=== PATIENT | male | born 1960 | race African-American/Black ===

== ENCOUNTER 2016-09-14 06:14 | Emergency (ER) | payer OTHER ==
[2016-09-14 06:54] VITALS: BMI 47.9
[2016-09-14] MEDS ORDERED: predniSONE 20 MG TABLET (UD) PO ONE (07:26)
[2016-09-14] MEDS ORDERED: ALBUTEROL SO4 2.5/IPRATROPIUM 0.5 INH SOL 3 ML VIAL.NEB. NEB ONE ×3 (07:26→07:45)
[2016-09-14] MEDS ORDERED: predniSONE 20 MG TABLET (UD) ONE (07:33)
--- NOTE | 2016-09-14 07:34 | PDOC ---
History of Present Illness - General Chief Complaint: Respiratory Stated Complaint: WHEEZING Time Seen by Provider: 09/14/16 07:17 History Source: Patient Exam Limitations: No Limitations - History of Present Illness Initial Comments: 09/14/16 07:35 56 y/o male presents with cough x 5 days now wheezing 3 days worsened with exertion and coughing. Patient denies history of asthma, COPD, CHF, recent travel, recent illness, or smoking history. Patient states went to his PCP on Friday Dr. Natalia Elam who states it was likely viral and discharge patient home but states his symptoms worsen and decided to come to the ER. Patient denies fever, chills, headache, throat pain, chest pain, or palpitations. patient does have history hypertension and diabetes with his last fingerstick 2 days ago being around 250. Timing/Duration: reports: getting worse Severity: reports: mild, moderate Possible Cause: Yes: no prior episodes Modifying Factors: improves with: coughing Associated Symptoms: reports: cough, wheezing. denies: shortness of breath Past History - Past Medical History Allergies/Adverse Reactions: Allergies Allergy/AdvReac Type Severity Reaction Status Date / Time No Known Allergies Allergy Verified 09/14/16 06:45 Home Medications: Ambulatory Orders Losartan/Hydrochlorothiazide [Hyzaar 100-25 Tablet] 1 each PO DAILY #0 tablet Metoprolol Tartrate [Lopressor -] 50 mg PO DAILY 03/30/15 Insulin Lispro [Humalog] 35 unit SQ BID 02/26/16 Tamsulosin HCl [Flomax] 0.4 mg PO DAILY #7 capsule 02/26/16 Anemia: No Asthma: No Cancer: No Cardiac Disorders: No CVA: No COPD: No CHF: No Dementia: No Diabetes: Yes (IDDM) GI Disorders: No Disorders: No HTN: Yes Hypercholesterolemia: Yes Liver Disease: No Seizures: No Thyroid Disease: No - Surgical History Abdominal Surgery: Yes (HERNIA REPAIR CHILD) Appendectomy: No Cardiac Surgery: No Cholecystectomy: No Lung Surgery: No Neurologic Surgery: No Orthopedic Surgery: No - Immunization History Immunization Up to Date: Yes - Psycho/Social/Smoking Cessation Hx Anxiety: No Suicidal Ideation: No Smoking Status: No Smoking History: Never smoked Have you smoked in the past 12 months: No Number of Cigarettes Smoked Daily: 0 Hx Alcohol Use: No Drug/Substance Use Hx: No Substance Use Type: None Hx Substance Use Treatment: No Respiratory Specific PMHX - Complaint Specific PMHX Bronchitis: No Review of Systems - Review of Systems Able to Perform ROS?: Yes Constitutional: No: Symptoms Reported HEENTM: No: Symptoms Reported Respiratory: Yes: Cough, Wheezing Cardiac (ROS): No: Symptoms Reported ABD/GI: No: Symptoms Reported : No: Symptoms Reported Musculoskeletal: No: Symptoms Reported Integumentary: No: Symptoms Reported Neurological: No: Symptoms reported *Physical Exam - Vital Signs Last Vital Signs Temp Pulse Resp BP Pulse Ox 89 19 136/76 94 L 09/14/16 06:51 09/14/16 06:51 09/14/16 06:51 09/14/16 06:51 - Physical Exam General Appearance: Yes: Nourished, Appropriately Dressed. No: Apparent Distress HEENT: positive: EOMI, FREDDY. negative: Pale Conjunctivae Neck: positive: Supple Respiratory/Chest: positive: Wheezing (expiratory to right lobe). negative: Respiratory Distress, Accessory Muscle Use, Labored Respiration, Rapid RR, Decreased Breath Sounds Cardiovascular: positive: Regular Rhythm, Regular Rate. negative: Murmur Gastrointestinal/Abdominal: positive: Soft. negative: Tenderness Extremity: positive: Normal Capillary Refill. negative: Pedal Edema Integumentary: positive: Normal Color, Warm, Moist Neurologic: positive: Motor Strength 5/5 (ambulatory) ED Treatment Course - RADIOLOGY Radiology Studies Ordered: Category Date Time Status CHEST PA & LAT [RAD] Stat Radiology 09/14/16 07:26 Ordered Medical Decision Making - Medical Decision Making 09/14/16 07:50 Patient with cough for the past 5 days now associated with wheezing. Patient denies fever, chills, chest pain, shortness of breath . patient on exam had expiratory wheeze to the right lower lobe without rhonchi crackles, or rales. Patient concerning for acute wheezy bronchitis. Patient ordered for 2 DuoNeb, prednisone, and chest x-ray. Patient's repeat O2 sat on my exam was 97 with a heart rate of 82. Temperature missing and will obtain shortly. 09/14/16 08:50 Patient states feeling much better. Patient has no wheezing or accessory muscle use on exam. Patient's O2 sat 97-98% on room air. Patient's chest x-ray negative for acute findings. Patient be discharged home with prednisone 3 days , and albuterol inhaler and a Z-Ketan for acute wheezy bronchitis *DC/Admit/Observation/Transfer Diagnosis at time of Disposition: Acute wheezy bronchitis - Discharge Dispostion Disposition: HOME Condition at time of disposition: Improved - Referrals Referrals: Natalia Elam MD [Primary Care Provider] - - Patient Instructions Printed Discharge Instructions: DI for Acute Bronchitis Additional Instructions: Take azithromycin as prescribed for the next 3 days. Please start prednisone tomorrow for the next 3 days. Use your inhaler as needed for wheezing or coughing.
[2016-09-14 07:57] VITALS: TEMP 97.5
[2016-09-14 09:03] VITALS: BP 138/72; PULSE 88
== END 2016-09-14 09:03 | disposition home or self-care (01) ==
LOC: JER 06:14
PROC: 3E0F7GC Introduction of Other Therapeutic Substance into Respiratory Tract, Via Natural or Artificial Opening (ICD-10-PCS; principal; 2016-09-14)
PROC: 3E0F7GC Introduction of Other Therapeutic Substance into Respiratory Tract, Via Natural or Artificial Opening (ICD-10-PCS; 2016-09-14)
DX: J20.9 Acute bronchitis, unspecified (principal); I10 Essential (primary) hypertension; E11.9 Type 2 diabetes mellitus without complications; Z79.4 Long term (current) use of insulin; E78.00 Pure hypercholesterolemia, unspecified
CPT/HCPCS: 71020-TC; 99283-25

== ENCOUNTER 2016-11-23 22:14 | Emergency (ER) | payer OTHER ==
--- NOTE | 2016-11-23 22:17 | PDOC ---
[id number] 4d DIARRHEA Time Seen by Provider: 11/23/16 22:16 - History of Present Illness Initial Comments: 11/23/16 22:54 This 56-year-old man with a history of hypertension/diabetes mellitus type 2/ prostate carcinoma (in remission) presents with a 3 day history of diarrhea. Patient reports 4-5 bowel movements a day: Watery, brown stools without mucus or blood. Patient has not had any nausea or vomiting; he denies fevers/chills. He has no significant abdominal pain. No other family member with similar illness. No recent travel and no unusual food ingestion. Patient states that he is been attempting to keep up on his fluid hydration however feels that his mouth is dry. Patient took 2 doses of Imodium(first dose 4 mg , second dose 2 mg) today without change in stool consistency (no doses prior to today) Patient has been taking his other medications as prescribed Past History - Past Medical History Allergies/Adverse Reactions: Allergies Allergy/AdvReac Type Severity Reaction Status Date / Time No Known Allergies Allergy Verified 09/14/16 06:45 Home Medications: Ambulatory Orders Losartan/Hydrochlorothiazide [Hyzaar 100-25 Tablet] 1 each PO DAILY #0 tablet Metoprolol Tartrate [Lopressor -] 50 mg PO DAILY 03/30/15 Insulin Lispro [Humalog] 35 unit SQ BID 02/26/16 Tamsulosin HCl [Flomax] 0.4 mg PO DAILY #7 capsule 02/26/16 Anemia: No Asthma: No Cancer: No Cardiac Disorders: No CVA: No COPD: No CHF: No Dementia: No Diabetes: Yes (IDDM) GI Disorders: No Disorders: No HTN: Yes Hypercholesterolemia: Yes Liver Disease: No Seizures: No Thyroid Disease: No - Surgical History Abdominal Surgery: Yes (HERNIA REPAIR CHILD) Appendectomy: No Cardiac Surgery: No Cholecystectomy: No Lung Surgery: No Neurologic Surgery: No Orthopedic Surgery: No - Immunization History Immunization Up to Date: Yes - Psycho/Social/Smoking Cessation Hx Anxiety: No Suicidal Ideation: No Smoking Status: No Smoking History: Never smoked Have you smoked in the past 12 months: No Number of Cigarettes Smoked Daily: 0 Hx Alcohol Use: No Drug/Substance Use Hx: No Substance Use Type: None Hx Substance Use Treatment: No Review of Systems - Review of Systems Able to Perform ROS?: Yes Comments:: 12 point review of systems is negative except for what is noted in the history of present illness *Physical Exam - Physical Exam Comments: GENERAL: Adult male, alert and oriented 3, in no acute distress HEAD: Normal with no signs of trauma. EYES: PERRLA, EOMI, sclera anicteric, conjunctiva clear. ENT: Ears normal, nares patent, oropharynx clear without exudates. Dry mucous membranes. NECK: Normal range of motion, supple without lymphadenopathy, JVD, or masses. LUNGS: Breath sounds equal, clear to auscultation bilaterally. No wheezes, and no crackles. HEART:Regular rate and rhythm, normal S1 and S2 without murmur, rub or gallop. ABDOMEN:.normal bowel sounds No guarding,tenderness or rebound.No masses No distention. EXTREMITIES: Normal range of motion, no edema. No clubbing or cyanosis. No erythema, or tenderness. NEUROLOGICAL: Cranial nerves II through XII grossly intact. Normal speech. No focal neurological deficits. MUSCULOSKELETAL: Back non-tender to palpation, no CVA tenderness SKIN: Warm, Dry, normal turgor, no rashes or lesions noted. ED Treatment Course - LABORATORY CBC & Chemistry Diagram: 11/23/16 22:46 11/23/16 22:46 Progress Note - Progress Note Progress Note: Because this 56-year-old man with a history of nonbloody diarrhea for 3 days feels thirsty and has dry mucous membranes, liter of normal saline will be given. CBC/chemistry profile will be sent to evaluate for electrolyte abnormalities. Lack of fever/abdominal tenderness/mucus or blood in stool makes invasive infection much less likely. Medical Decision Making - Medical Decision Making Laboratory evaluation shows white blood cell count of 3400; sodium level is slightly decreased at 134; potassium is normal at 4.2. BUN is 28 with creatinine of 1.7 (comparable to previous values in the record) glucose is 222 Patient is given a liter normal saline IV. Patient had one loose stool tearing evaluation; given 2 mg of Imodium by mouth. Diarrhea is likely related to viral based gastroenteritis; since there is no clear evidence of invasive enterocolitis, empiric antibiotics will not be given. Patient should drink plenty of fluids and use Imodium/Pepto-Bismol/ Kaopectate as needed. He should plan to see his PMD, Dr. Natalia Lutz on November 25. If he develops pain/vomiting/fever he should return to the emergency room. 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 and probably could not see red color if blood was in stool) *DC/Admit/Observation/Transfer Diagnosis at time of Disposition: Diarrhea Qualifiers: Diarrhea type: presumed infectious Qualified Code(s): A09 - Infectious gastroenteritis and colitis, unspecified - Discharge Dispostion Disposition: HOME Condition at time of disposition: Stable - Referrals Referrals: Natalia Elam MD [Primary Care Provider] - 2 Days - Patient Instructions Printed Discharge Instructions: Diarrhea, Gastroenteritis Diet Additional Instructions: drink plenty of fluids imodium/pepto-bismol/kaopectate as needed return to ER if you develop weakness/fever/pain/bloody or dark stools followup with Dr Tyson on November 25
[2016-11-23 22:18] VITALS: BP 131/76; PULSE 79; TEMP 97.5; BMI 47.0
[2016-11-23] MEDS ORDERED: SODIUM CHLORIDE 1,000 ML IV STA (22:37)
[2016-11-23 23:02] LABS: BASOPHIL 1.3 % (0-2.0); EOSINOPHIL 1.5 % (0-4.5); MCH 26.1 pg (25.7-33.7); MCHC 32.5 g/dl (32.0-35.9); MEAN CELL VOLUME 80.2 fl (80-96); MEAN PLT VOLUME 10.9 fl (7.5-11.1); NEUTROPHILS 67.3 % (42.8-82.8); PLATELET COUNT 141 K/MM3 (134-434); RDW 15.1 % (11.9-15.9); WHITE BLOOD COUNT 3.4 K/mm3 (4.0-10.0)
[2016-11-23 23:13] LABS: ALBUMIN 3.7 g/dl (3.5-5.0); BILIRUBIN,TOTAL 0.4 mg/dl (0.2-1.0); CALCIUM 8.2 mg/dl (8.4-10.2); CREATININE 1.7 mg/dl (0.6-1.3); TOT PROT 6.8 g/dl (6.4-8.3)
[2016-11-23] MEDS ORDERED: LOPERAMIDE HCL 2 MG CAPSULE ONE (23:39)
[2016-11-23] MEDS ORDERED: LOPERAMIDE HCL 2 MG CAPSULE PO ONE (23:44)
== END 2016-11-23 23:48 | disposition home or self-care (01) ==
LOC: FER 22:14
PROC: 3E0337Z Introduction of Electrolytic and Water Balance Substance into Peripheral Vein, Percutaneous Approach (ICD-10-PCS; principal; 2016-11-23)
DX: A09 Infectious gastroenteritis and colitis, unspecified (principal); E11.9 Type 2 diabetes mellitus without complications; I10 Essential (primary) hypertension
CPT/HCPCS: 36415; 80053; 85025; 99283-25

== ENCOUNTER 2018-09-03 09:18 | Emergency (ER) | payer OTHER ==
--- NOTE | 2018-09-03 09:20 | PDOC ---
History of Present Illness - General Chief Complaint: Ear Problem Stated Complaint: RIGHT EAR WAX Time Seen by Provider: 09/03/18 09:19 History Source: Patient Exam Limitations: No Limitations - History of Present Illness Initial Comments: Pt is a 57 yo M, with PMH of HTN, DM, and prostate CA (in remission), who is presenting with complaints of pressure and "feeling like there is earwax" in his R ear x2 days. Pt states he used OTC Debrox drops, which did not relieve the pressure. He also says he feels like his hearing may be decreased in that ear, but denies any tinnitus, vision changes, or problems with balance. He denies any recent travel, allergies, ear surgeries, or prolonged head submersion /diving/swimming. Pt denies any fevers/chills, headache, vision changes, chest pain, palpitations, SOB, nausea/vomiting, abdominal pain, urinary symptoms, diarrhea/constipation, or leg swelling. 09/03/18 09:59 Past History - Travel Traveled outside of the country in the last 30 days: No Close contact w/someone who was outside of country & ill: No - Past Medical History Allergies/Adverse Reactions: Allergies Allergy/AdvReac Type Severity Reaction Status Date / Time No Known Allergies Allergy Verified 09/03/18 09:27 Home Medications: Ambulatory Orders Losartan/Hydrochlorothiazide [Hyzaar 100-25 Tablet] 1 each PO DAILY #0 tablet Metoprolol Tartrate [Lopressor -] 50 mg PO DAILY 03/30/15 Insulin Lispro [Humalog] 0 unit SQ BID 02/26/16 Anemia: No Asthma: No Cancer: No Cardiac Disorders: No CVA: No COPD: No CHF: No Dementia: No Diabetes: Yes (IDDM) GI Disorders: No Disorders: No HTN: Yes Hypercholesterolemia: Yes Liver Disease: No Seizures: No Thyroid Disease: No - Surgical History Abdominal Surgery: Yes (HERNIA REPAIR CHILD) Appendectomy: No Cardiac Surgery: No Cholecystectomy: No Lung Surgery: No Neurologic Surgery: No Orthopedic Surgery: No - Immunization History Immunization Up to Date: Yes - Suicide/Smoking/Psychosocial Hx Smoking Status: No Smoking History: Never smoked Have you smoked in the past 12 months: No Number of Cigarettes Smoked Daily: 0 Hx Alcohol Use: No Drug/Substance Use Hx: No Substance Use Type: None Hx Substance Use Treatment: No Review of Systems - Review of Systems Able to Perform ROS?: Yes Is the patient limited Bengali proficient: No Constitutional: Yes: Weight Stable. No: Chills, Diaphoresis, Fever, Loss of Appetite, Malaise, Weakness HEENTM: Yes: See HPI, Other (ear "pressure" sensation in the R ear x2 days). No : Recent change in vision, Ear Pain, Ear Discharge, Nose Congestion, Tinnitus, Nose Bleeding, Throat Pain, Throat Swelling Respiratory: No: Cough, Orthopnea, Shortness of Breath Cardiac (ROS): No: Chest Pain, Lightheadedness, Palpitations, Syncope ABD/GI: No: Diarrhea, Poor Appetite, Poor Fluid Intake, Vomiting : No: Burning, Dysuria, Pain Musculoskeletal: No: Back Pain, Joint Pain Integumentary: No: Rash Neurological: No: Headache, Numbness, Unsteady Gait, Ataxia, Dizziness Psychiatric: No: Sleep Pattern Change, Change in Appetite Endocrine: No: Increased Urine, Change in Weight Hematologic/Lymphatic: No: Anemia, Blood Clots, Easy Bleeding, Easy Bruising All Other Systems: Reviewed and Negative *Physical Exam - Physical Exam General Appearance: Yes: Nourished, Appropriately Dressed, Obese. No: Apparent Distress HEENT: positive: EOMI, FREDDY, Normal Voice, Symmetrical, TMs Normal, Pharynx Normal, Hearing Grossly Normal, Other (Fluid behind R TM, L TM impacted with cerumen). negative: Normal ENT Inspection, Photophobia, Scleral Icterus (R), Scleral Icterus (L), Muffled/Hoarse voice, Pharyngeal Erythema, Tonsillar Exudate, Tonsillar Erythema, Nasal Congestion, Rhinorrhea, Sinus Tenderness, Hearing Decreased, TM Bulging, TM Dull, TM Erythema Neck: positive: Trachea midline, Supple. negative: Tender, Rigid, Lymphadenopathy (R), Lymphadenopathy (L) Respiratory/Chest: positive: Lungs Clear, Normal Breath Sounds, Decreased Breath Sounds (mildly diminished due to body habitus, but clear). negative: Chest Tender, Respiratory Distress, Accessory Muscle Use, Crackles, Wheezing Cardiovascular: positive: Regular Rhythm, Regular Rate, S1, S2. negative: Edema , JVD, Murmur Vascular Pulses: Carotid (R): 4+, Carotid (L): 4+ Gastrointestinal/Abdominal: positive: Normal Bowel Sounds, Soft, Protuberent. negative: Tender, Flat, Organomegaly, Pulsatile Mass, Distended, Guarding, Rebound Rectal Exam: positive: deferred Lymphatic: negative: Adenopathy, Tenderness Musculoskeletal: positive: Normal Inspection. negative: CVA Tenderness Extremity: positive: Normal Capillary Refill, Normal Inspection, Normal Range of Motion, Pelvis Stable. negative: Tender Integumentary: positive: Normal Color, Dry, Warm. negative: Clammy, Diaphoresis , Rash Neurologic: positive: physician internist II-XII NML intact, Fully Oriented, Alert, Normal Mood/ Affect, Normal Response, Motor Strength 5/5. negative: Abnormal Cranial NS, EOM Palsy Medical Decision Making - Medical Decision Making Pt was seen at bedside, also will be seen by attending Dr. Griggs. Pt presenting with complaints of pressure and "feeling like there is earwax" in his R ear x2 days. Pt states he used OTC Debrox drops, which did not relieve the pressure. He also says he feels like his hearing may be decreased in that ear, but denies any tinnitus, vision changes, or problems with balance. He denies any recent travel, allergies, ear surgeries, or prolonged head submersion /diving/swimming. Pt denies any fevers/chills, headache, vision changes, chest pain, palpitations, SOB, nausea/vomiting, abdominal pain, urinary symptoms, diarrhea/constipation, or leg swelling. PE showed cerumen impaction of the LEFT ear, no cerumen impaction of the RIGHT ear. Fluid behind R TM, no significant erythema or signs of exudate. No LAD or tenderness with ear pulling. No sinus tenderness to palpation. Heart and lung sounds clear, slightly diminished due to body habitus. Exam otherwise benign. Likely congestion with fluid behind TM. Minimal concern for otitis media, as ear is not painful and no erythema/purulent fluid behind TM. TM intact with no rupture. Considering benign exam pt can be discharged to home with follow-up. Pt advised to use decongestants (OTC claritin/flonase, and to avoid medications that would raise his BP, like ephedrine). Pt advised to follow-up with PCP in 1-2 days and has been referred to ENT (Dr. Terrazas). Strict return precautions provided with pt understanding. 09/03/18 09:38 *DC/Admit/Observation/Transfer Diagnosis at time of Disposition: Congestion of right ear - Discharge Dispostion Disposition: HOME Condition at time of disposition: Good Decision to Admit order: No - Referrals Referrals: Carol Alejo MD [Primary Care Provider] - Adryan Terrazas MD [Staff Physician] - - Patient Instructions Printed Discharge Instructions: DI for Cerumen Impaction Additional Instructions: You were seen in the ER today for pressure in your ear. Your exam showed only fluid behind your right ear, and earwax in your left ear. Please follow-up with your primary care doctor and ENT (Dr. Terrazas) within 1-2 days to discuss your visit and make sure your symptoms have improved. Please return to the ER if you have any worsening pain, loss of hearing, ringing in your ears, dizziness or feeling off balance, development of fevers or chills, loss of consciousness, inability to tolerate food or fluids, or any other concerns. You can use a decongestant like Flonase and Claritin to help with the congestion. - Post Discharge Activity
[2018-09-03 09:30] VITALS: BP 153/104; PULSE 75; TEMP 97.6; BMI 46.1
--- NOTE | 2018-09-03 10:06 | PDOC ---
Attending Attestation - Resident Resident Name: AnthonyHelena - ED Attending Attestation I have performed the following: I have examined & evaluated the patient, The case was reviewed & discussed with the resident, I agree w/resident's findings & plan, Exceptions are as noted - HPI HPI: 09/03/18 10:02 57 yo male with h/o HTN DM prostate CA in remission here with c/o right ear fullness. thinks he may have wax impaction. has been using wax drops, did recently have a cold with nasal congestion. feels his hearing may be slightly reduced on that side. no vertigo or dizziness. no weakness. no tinnitus. no f/c no cp no sob. no other comlaints. no know h/o tm fluid leaking or injury. does use q tips. - Physicial Exam PE: 09/03/18 10:03 awake alert lungs clear bilaterally heart rrr no mrg right tm with serous fluid behind TM. mild hypervasculature, noted posterior aspect TM. left tm partially occluded by wax. throat with post pharynx cobblestoning. nare with right turbinate enlargement. nuero speech clear gait normal. alert oriented x 3. - Medical Decision Making 09/03/18 10:05 pt with no wax occlusion, noted hypervascularity on right TM possible old injury to TM. recommend ENT followup, decongestant such as flonase, given number for dr. dawn. and told to continue wax drops in left ear.
== END 2018-09-03 09:49 | disposition home or self-care (01) ==
LOC: FER 09:18
DX: H93.8X1 Other specified disorders of right ear (principal); I10 Essential (primary) hypertension; E78.00 Pure hypercholesterolemia, unspecified; E11.9 Type 2 diabetes mellitus without complications; Z85.46 Personal history of malignant neoplasm of prostate; Z79.4 Long term (current) use of insulin
CPT/HCPCS: 99281-25

== ENCOUNTER 2018-11-04 16:18 | Inpatient (IN) | payer OTHER ==
--- NOTE | 2018-11-04 16:42 | PDOC ---
History of Present Illness - General Chief Complaint: Respiratory Stated Complaint: WEAKNESS Time Seen by Provider: 11/04/18 16:42 History Source: Patient Exam Limitations: No Limitations - History of Present Illness Initial Comments: 11/04/18 17:18 58 year old male with PMH IDDM, HTN presented to ED for productive cough x4 days associated with pleuritic chest pain, body aches. Pt stated he saw his PCP Dr. Carol Alejo x2 days ago for same complaints, but his symptoms persist. Pt stated he was not given antibiotics. Pt stated his productive cough is yellow. Pt denied hemoptysis. Allergies: NKDA Admitted to having flu shot Past History - Past Medical History Allergies/Adverse Reactions: Allergies Allergy/AdvReac Type Severity Reaction Status Date / Time No Known Allergies Allergy Verified 11/04/18 16:42 Home Medications: Ambulatory Orders Metoprolol Tartrate [Lopressor -] 50 mg PO DAILY 03/30/15 Insulin Lispro [Humalog] 0 unit SQ BID 02/26/16 Insulin Detemir [Levemir Flextouch] 30 unit SQ BID 11/04/18 Losartan/Hydrochlorothiazide [Hyzaar 100-25 Tablet] 1 each PO ASDIR 11/04/18 Anemia: No Asthma: No Cancer: No Cardiac Disorders: No CVA: No COPD: No CHF: No Dementia: No Diabetes: Yes (IDDM) GI Disorders: No Disorders: No HTN: Yes Hypercholesterolemia: Yes Kidney Stones: Yes Liver Disease: No Seizures: No Thyroid Disease: No - Surgical History Abdominal Surgery: Yes (HERNIA REPAIR CHILD) Appendectomy: No Cardiac Surgery: No Cholecystectomy: No Lung Surgery: No Neurologic Surgery: No Orthopedic Surgery: No - Immunization History Immunization Up to Date: Yes - Suicide/Smoking/Psychosocial Hx Smoking Status: No Smoking History: Never smoked Have you smoked in the past 12 months: No Number of Cigarettes Smoked Daily: 0 Hx Alcohol Use: No Drug/Substance Use Hx: No Substance Use Type: None Hx Substance Use Treatment: No Review of Systems - Review of Systems Able to Perform ROS?: Yes Comments:: 11/04/18 17:19 General: admitted to fever, chills, generalized weakness. HEENT: denied sore throat, rhinorrhea, ear pain. Heart: admitted to chest pain. denied palpitations, syncope, diaphoresis. Respiratory: admitted to cough, sputum production. denied shortness of breath, hemoptysis. Abdomen: admitted to nausea, vomiting. denied abdominal pain, diarrhea, constipation, blood in stool. : denied dysuria, increased urinary frequency, hematuria, urinary incontinence , flank pain. Back: denied back pain. Musculoskeletal: denied joint pain, joint swelling. Neurological: denied headache, dizziness, numbness, tingling, weakness. Skin: denied rash, laceration, abrasion. *Physical Exam - Physical Exam Comments: 11/04/18 18:11 Constitutional: Well-nourished, Well-developed, appearing stated age. morbidly obese. HEENT: head is normocephalic, atraumatic. EOMI. PERRLA. dry oral mucosa. Neck: supple. Full ROM. Heart: regular rhythm. no murmurs, rubs or gallops. Lungs: poor inspiratory effort. clear to auscultation bilaterally. Abdomen: soft, nontender. normal bowel sounds. no rebound, guarding, masses. Extremities: Peripheral pulses intact. No lower extremity edema. Neurological: CN 2-12 grossly intact. Moves all four extremities. Psych: awake, alert, oriented x3. Follows commands. Answers questions appropriately ED Treatment Course - LABORATORY CBC & Chemistry Diagram: 11/05/18 08:30 11/04/18 17:00 Medical Decision Making - Medical Decision Making 11/04/18 17:21 58 year old male with above PMH presented to ED for productive cough, body aches , pleuritic chest pain. Pt had nausea, vomiting x2 days ago that has resolved. Initial Vital Signs Temp Pulse Resp BP Pulse Ox 100.4 F H 121 H 26 H 141/85 97 11/04/18 16:42 11/04/18 16:42 11/04/18 16:42 11/04/18 16:42 11/04/18 16:42 Febrile. - Rectal temp 102.9F Tachycardic. Tachypneic. Mild hypertension. No hypoxia on room air. Labs ordered: CBC, CMP, VBG, troponin, BNP, lactate, blood cultures, influenza A /B testing Imaging ordered: CXR Medications ordered: normal saline bolus 1000 cc, tylenol, duoneb EKG performed at 1656: rate 118, regular rhythm, left axis, nonspecific ST changes. 11/04/18 17:31 CBC WBC 11.3 K/mm3 (4.0-10.0) H 11/04/18 17:00 RBC 5.67 M/mm3 (4.00-5.60) H 11/04/18 17:00 Hgb 16.3 GM/dL (11.7-16.9) 11/04/18 17:00 Hct 49.2 % (35.4-49) H D 11/04/18 17:00 MCV 86.8 fl (80-96) 11/04/18 17:00 MCH 28.7 pg (25.7-33.7) D 11/04/18 17:00 MCHC 33.1 g/dl (32.0-35.9) 11/04/18 17:00 RDW 14.5 % (11.9-15.9) 11/04/18 17:00 Plt Count 194 K/MM3 (134-434) D 11/04/18 17:00 MPV 10.0 fl (7.5-11.1) 11/04/18 17:00 Absolute Neuts (auto) 9.8 K/mm3 (1.5-8.0) H 11/04/18 17:00 Neutrophils % 86.6 % (42.8-82.8) H 11/04/18 17:00 Lymphocytes % 5.6 % (8-40) L D 11/04/18 17:00 Monocytes % 7.0 % (3.8-10.2) 11/04/18 17:00 Eosinophils % 0.6 % (0-4.5) 11/04/18 17:00 Basophils % 0.2 % (0-2.0) 11/04/18 17:00 Nucleated RBC % 0 % (0-0) 11/04/18 17:00 Leukocytosis with left shift. No anemia. 11/04/18 17:52 CMP Sodium 135 mmol/L (136-145) L 11/04/18 17:00 Potassium 4.2 mmol/L (3.5-5.1) 11/04/18 17:00 Chloride 100 mmol/L (98-107) 11/04/18 17:00 Carbon Dioxide 29 mmol/L (21-32) 11/04/18 17:00 Anion Gap 7 MMOL/L (8-16) L 11/04/18 17:00 BUN 21 mg/dL (7-18) H 11/04/18 17:00 Creatinine 1.6 mg/dL (0.55-1.3) H 11/04/18 17:00 Creat Clearance w eGFR 44.62 (>60) 11/04/18 17:00 Random Glucose 176 mg/dL (74-106) H 11/04/18 17:00 Calcium 9.1 mg/dL (8.5-10.1) 11/04/18 17:00 Total Bilirubin 0.5 mg/dL (0.2-1) 11/04/18 17:00 AST 22 U/L (15-37) 11/04/18 17:00 ALT 46 U/L (13-61) 11/04/18 17:00 Alkaline Phosphatase 94 U/L (45-117) 11/04/18 17:00 Troponin I < 0.02 ng/ml (0.00-0.05) 11/04/18 17:00 B-Natriuretic Peptide 179.8 pg/ml (5-125) H 11/04/18 17:00 Total Protein 6.5 g/dl (6.4-8.2) 11/04/18 17:00 Albumin 3.2 g/dl (3.4-5.0) L 11/04/18 17:00 No electrolyte abnomalitiles. Cr at baseline. No transaminitis. Mild elevation of BNP, not clinically significant. Normal troponin. Influenza testing A/B negative. 11/04/18 18:11 Lactate 2.9 Medications ordered: normal saline bolus 1000 cc 11/04/18 18:31 Vital Signs Temperature 102.9 F H 11/04/18 17:14 Pulse Rate 98 H 11/04/18 18:13 Respiratory Rate 28 H 11/04/18 18:13 Blood Pressure 108/65 11/04/18 18:13 O2 Sat by Pulse Oximetry (%) 95 11/04/18 18:13 Tachycardia improving with fluid hydration. Still tachypneic. Mild hypotension. No hypoxia on room air. 11/04/18 18:41 CXR my interpretation: hazy left base, possible pneumonia. Medications ordered: ceftriaxone + azithromycin Acetone negative. Pt to be admitted for sepsis, suspected pneumonia, lactic acidosis. Microblog sent to hospitalists. 11/04/18 19:51 Vital Signs Temperature 102.9 F H 02/27/19 17:14 Pulse Rate 90 11/04/18 19:31 Respiratory Rate 26 H 11/04/18 19:31 Blood Pressure 125/58 L 11/04/18 19:31 O2 Sat by Pulse Oximetry (%) 93 L 11/04/18 19:31 Blood pressure improving with IV fluids. I spoke with Dr. Moore about the case, he recs admission for community acquired pneumonia. Urine Test Results Urine Color Yellow 11/04/18 19:16 Urine Appearance Clear 11/04/18 19:16 Urine pH 5.0 (5.0-8.0) 11/04/18 19:16 Ur Specific [place] 1.025 (1.010-1.035) 11/04/18 19:16 Urine Protein 2+ (NEGATIVE) H 11/04/18 19:16 Urine Glucose (UA) Negative (NEGATIVE) 11/04/18 19:16 Urine Ketones Negative (NEGATIVE) 11/04/18 19:16 Urine Blood Negative (NEGATIVE) 11/04/18 19:16 Urine Nitrite Negative (NEGATIVE) 11/04/18 19:16 Urine Bilirubin Negative (<2.0 mg/dL) 11/04/18 19:16 Ur Leukocyte Esterase Negative (NEGATIVE) 11/04/18 19:16 Ur Epithelial Cells Rare /HPF (FEW) 11/04/18 19:16 Urine Mucus Rare 11/04/18 19:16 No evidence of UTI. 11/05/18 10:08 Official CXR report: no active intrapulmonary disease. - CXR of poor quality secondary to morbid obesity, may not show underlying pneumonia - Clinically pt has symptoms concerning for sepsis secondary to pneumonia *DC/Admit/Observation/Transfer Diagnosis at time of Disposition: Lactic acidosis, Sepsis, Productive cough - Discharge Dispostion Condition at time of disposition: Guarded Decision to Admit order: Yes - Referrals - Patient Instructions - Post Discharge Activity
[2018-11-04] MEDS ORDERED: SODIUM CHLORIDE 1,000 ML IV STA ×2 (16:55→18:10)
[2018-11-04] MEDS ORDERED: ACETAMINOPHEN 1000 MG/100 ML VIAL (NON FORMULARY) IVPB ONE (16:55)
--- NOTE | 2018-11-04 17:11 | PDOC ---
Attending Attestation - HPI HPI: 11/04/18 18:14 The patient is a 58 year old male, with a significant past medical history of hypertension, IDDM who presents to the emergency department with 4 days of persistent cough productive of yellow sputum, body aches, pleuritic chest pain. He states he saw Dr. Alejo a couple of days ago who advised him to come to the ED for evaluation. The patient denies shortness of breath, headache and dizziness. The patient denies fever, chills, nausea, vomit, diarrhea and constipation. The patient denies dysuria, frequency, urgency and hematuria. Allergies: NKDA - Physicial Exam PE: 11/04/18 18:14 Constitutional: Well-nourished, Well-developed, appearing stated age. morbidly obese. HEENT: head is normocephalic, atraumatic. EOMI. PERRLA. dry oral mucosa. Neck: supple. Full ROM. Heart: regular rhythm. no murmurs, rubs or gallops. Lungs: poor inspiratory effort. clear to auscultation bilaterally. Abdomen: soft, nontender. normal bowel sounds. no rebound, guarding, masses. Extremities: Peripheral pulses intact. No lower extremity edema. Neurological: CN 2-12 grossly intact. Moves all four extremities. Psych: awake, alert, oriented x3. Follows commands. Answers questions appropriately <Vanessa Pineda - Last Filed: 11/04/18 18:14> - Resident Resident Name: Dina Bowie - ED Attending Attestation I have performed the following: I have examined & evaluated the patient, The case was reviewed & discussed with the resident, I agree w/resident's findings & plan, Exceptions are as noted - Medical Decision Making 11/04/18 18:37 EKG - NSR rate of 118bpm, LAD, no st elevation or depression, (+) LVH, (+) artifact 11/04/18 18:38 Laboratory Tests 11/04/18 11/04/18 11/04/18 17:00 17:00 17:01 WBC 11.3 H Hgb 16.3 Hct 49.2 H D Plt Count 194 D Sodium 135 L Potassium 4.2 Chloride 100 Carbon Dioxide 29 Anion Gap 7 L BUN 21 H Creatinine 1.6 H Random Glucose 176 H Alkaline Phosphatase 94 Troponin I < 0.02 B-Natriuretic Peptide 179.8 H Influenza A (Rapid) Negative Influenza B (Rapid) Negative CXR - no obvious infiltrate Pt with productive cough Will do Azithromycin, Ceftriaxone Continue IVF PRN duonebs Admit to hospitalist <Renetta Chatterjee - Last Filed: 11/04/18 18:39> Attestations - Attestations 11/04/18 18:15 Documentation prepared by Vanesas Pineda, acting as biomedical scientist for Renetta Chatterjee MD <Vanessa Pineda - Last Filed: 11/04/18 18:14>
[2018-11-04] MEDS ORDERED: ACETAMINOPHEN INJECTION 100 ML IVPB ONE (17:20)
[2018-11-04] MEDS ORDERED: ALBUTEROL SO4 2.5/IPRATROPIUM 0.5 INH SOL 3 ML VIAL.NEB. NEB ONE ×2 (17:22→17:25)
[2018-11-04 17:27] LABS: BASO % 0.2 % (0-2.0); EOS % 0.6 % (0-4.5); HEMATOCRIT 49.2 % (35.4-49); HEMOGLOBIN 16.3 GM/dL (11.7-16.9); LYMPH % 5.6 % (8-40); MCH 28.7 pg (25.7-33.7); MCHC 33.1 g/dl (32.0-35.9); MEAN CELL VOLUME 86.8 fl (80-96); NEUT % 86.6 % (42.8-82.8); PLATELET COUNT 194 K/MM3 (134-434); RBC 5.67 M/mm3 (4.00-5.60); RDW 14.5 % (11.9-15.9); WHITE BLOOD COUNT 11.3 K/mm3 (4.0-10.0)
[2018-11-04 17:39] LABS: VENOUS PC02 48.8 mmHg (38-52); VENOUS PH 7.4 (7.32-7.42)
[2018-11-04 17:50] LABS: ALBUMIN 3.2 g/dl (3.4-5.0); ALK PHOS 94 U/L (45-117); ANION GAP 7 MMOL/L (8-16); BILIRUBIN,TOTAL 0.5 mg/dL (0.2-1); BLOOD UREA NITROGEN 21 mg/dL (7-18); CALCIUM 9.1 mg/dL (8.5-10.1); CHLORIDE 100 mmol/L (98-107); CO2 29 mmol/L (21-32); CREATININE 1.6 mg/dL (0.55-1.3); GLUCOSE,RANDOM 176 mg/dL (74-106); N-TERMINAL BNP 179.8 pg/ml (5-125); POTASSIUM 4.2 mmol/L (3.5-5.1); SGOT/AST 22 U/L (15-37); SGPT/ALT 46 U/L (13-61); SODIUM 135 mmol/L (136-145); TOT PROT 6.5 g/dl (6.4-8.2)
[2018-11-04] MEDS ORDERED: AZITHROMYCIN 250 MG TABLET PO ONE (18:40)
[2018-11-04] MEDS ORDERED: CEFTRIAXONE 1,000 MG in DEXTROSE 5%-WATER - 50 ML IVPB ONE (18:40)
[2018-11-04] MEDS ORDERED: CEFTRIAXONE 1 GM/50 ML BAG ONE (19:13)
[2018-11-04] MEDS ORDERED: AZITHROMYCIN 250 MG TABLET ONE (19:13)
[2018-11-04 19:39] LABS: URINE APPEARANCE CLEAR; URINE BILIRUBIN NEGATIVE (<2.0 mg/dL); URINE COLOR YELLOW; URINE GLUCOSE (UA) NEGATIVE (NEGATIVE); URINE KETONE NEGATIVE (NEGATIVE); URINE LEUK ESTERASE NEGATIVE (NEGATIVE); URINE NITRITE NEGATIVE (NEGATIVE); URINE PROTEIN 2+ (NEGATIVE); URINE UROBILINOGEN NEGATIVE mg/dL (0.2-1.0)
[2018-11-04 19:42] LABS: EPI CELLS RARE /HPF (FEW); URINE HYALINE CAST 1 /lpf; URINE MUCUS RARE
--- NOTE | 2018-11-04 20:01 | HP ---
CHIEF COMPLAINT: productive cough PCP: Carol Alejo HISTORY OF PRESENT ILLNESS: 58 year old male diabetic man c/o 4 days of persistent cough productive of yellow sputum, body aches, pleuritic chest pain. He states he saw Dr. Alejo a couple of days ago who advised him to come to the ED for evaluation. Patient denied any sick contacts or recent travel. NO chest pain. ER course was notable for: (1) azithromycin (2) ceftriaxone (3) Recent Travel: denied PAST MEDICAL HISTORY: hypertension, IDDM, dylslipidemia, obesity, ckd PAST SURGICAL HISTORY: none reported Social History: Smoking:no Alcohol:no Drugs: no Family History:no Allergies No Known Allergies Allergy (Verified 11/04/18 16:42) HOME MEDICATIONS: Home Medications Medication Instructions Recorded Metoprolol Tartrate [Lopressor -] 50 mg PO DAILY 03/30/15 Insulin Lispro [Humalog] 0 unit SQ BID 02/26/16 Insulin Detemir [Levemir Flextouch] 30 unit SQ BID 11/04/18 Losartan/Hydrochlorothiazide 1 each PO ASDIR 11/04/18 [Hyzaar 100-25 Tablet] REVIEW OF SYSTEMS CONSTITUTIONAL: Absent: , weight change present- fever, chills, diaphoresis, generalized weakness, malaise, loss of appetite HEENT: Absent: rhinorrhea, nasal congestion, throat pain, throat swelling, difficulty swallowing, mouth swelling, ear pain, eye pain, visual changes CARDIOVASCULAR: Absent: chest pain, syncope, palpitations, irregular heart rate, lightheadedness , peripheral edema RESPIRATORY: Absent: cough, shortness of breath, dyspnea with exertion, orthopnea, wheezing, stridor, hemoptysis present-decreased breath sounds b/l GASTROINTESTINAL: Absent: abdominal pain, abdominal distension, nausea, vomiting, diarrhea, constipation, melena, hematochezia GENITOURINARY: Absent: dysuria, frequency, urgency, hesitancy, hematuria, flank pain, genital pain MUSCULOSKELETAL: Absent: myalgia, arthralgia, joint swelling, back pain, neck pain SKIN: Absent: rash, itching, pallor HEMATOLOGIC/IMMUNOLOGIC: Absent: easy bleeding, easy bruising, lymphadenopathy, frequent infections ENDOCRINE: Absent: unexplained weight gain, unexplained weight loss, heat intolerance, cold intolerance NEUROLOGIC: Absent: headache, focal weakness or paresthesias, dizziness, unsteady gait, seizure, mental status changes, bladder or bowel incontinence PSYCHIATRIC: Absent: anxiety, depression, suicidal or homicidal ideation, hallucinations. PHYSICAL EXAMINATION Vital Signs - 24 hr 11/04/18 11/04/18 11/04/18 16:42 17:14 18:13 Temperature 100.4 F H 102.9 F H Pulse Rate 121 H Pulse Rate [ 98 H Radial] Respiratory 26 H 28 H Rate Blood Pressure 141/85 Blood Pressure 108/65 [Right Arm] O2 Sat by Pulse 97 95 Oximetry (%) 11/04/18 19:31 Temperature Pulse Rate Pulse Rate [ 90 Radial] Respiratory 26 H Rate Blood Pressure Blood Pressure 125/58 L [Right Arm] O2 Sat by Pulse 93 L Oximetry (%) GENERAL: Awake, alert, and fully oriented, in no acute distress, speaks in full sentences HEAD: Normal with no signs of trauma. EYES: Pupils equal, round and reactive to light, extraocular movements intact, sclera anicteric, conjunctiva clear. No lid lag. EARS, NOSE, THROAT: Ears normal, nares patent, oropharynx clear without exudates. Moist mucous membranes. NECK: Normal range of motion, supple without lymphadenopathy, JVD, or masses. LUNGS: decreased breath sounds b/l, no crackles or rales appreciated HEART: Regular rate and rhythm, normal S1 and S2 without murmur, rub or gallop. ABDOMEN: Soft, nontender, obese, not distended, normoactive bowel sounds, no guarding, no rebound, no masses. MUSCULOSKELETAL: Normal range of motion at all joints. No bony deformities or tenderness. No CVA tenderness. UPPER EXTREMITIES: 2+ pulses, warm, well-perfused. No cyanosis. No clubbing. No peripheral edema. LOWER EXTREMITIES: 2+ pulses, warm, well-perfused. No calf tenderness. No peripheral edema. NEUROLOGICAL: Cranial nerves II-XII intact. Normal speech. Normal gait. PSYCHIATRIC: Cooperative. Good eye contact. Appropriate mood and affect. SKIN: Warm, dry, normal turgor, no rashes or lesions noted, normal capillary refill. Laboratory Results - last 24 hr 11/04/18 11/04/18 11/04/18 17:00 17:00 17:00 WBC 11.3 H RBC 5.67 H Hgb 16.3 Hct 49.2 H D MCV 86.8 MCH 28.7 D MCHC 33.1 RDW 14.5 Plt Count 194 D MPV 10.0 Absolute Neuts (auto) 9.8 H Neutrophils % 86.6 H Lymphocytes % 5.6 L D Monocytes % 7.0 Eosinophils % 0.6 Basophils % 0.2 Nucleated RBC % 0 Sodium 135 L Potassium 4.2 Chloride 100 Carbon Dioxide 29 Anion Gap 7 L BUN 21 H Creatinine 1.6 H Creat Clearance w eGFR 44.62 Random Glucose 176 H Lactic Acid 2.9 H* Calcium 9.1 Total Bilirubin 0.5 AST 22 ALT 46 Alkaline Phosphatase 94 Troponin I < 0.02 B-Natriuretic Peptide 179.8 H Total Protein 6.5 Albumin 3.2 L Urine Color Urine Appearance Urine pH Ur Specific [place] Urine Protein Urine Glucose (UA) Urine Ketones Urine Blood Urine Nitrite Urine Bilirubin Urine Urobilinogen Ur Leukocyte Esterase Urine WBC (Auto) Urine RBC (Auto) Ur Epithelial Cells Hyaline Casts Urine Mucus Acetone, Qual Influenza A (Rapid) Influenza B (Rapid) 11/04/18 11/04/18 11/04/18 17:00 17:01 19:16 WBC RBC Hgb Hct MCV MCH MCHC RDW Plt Count MPV Absolute Neuts (auto) Neutrophils % Lymphocytes % Monocytes % Eosinophils % Basophils % Nucleated RBC % Sodium Potassium Chloride Carbon Dioxide Anion Gap BUN Creatinine Creat Clearance w eGFR Random Glucose Lactic Acid Calcium Total Bilirubin AST ALT Alkaline Phosphatase Troponin I B-Natriuretic Peptide Total Protein Albumin Urine Color Yellow Urine Appearance Clear Urine pH 5.0 Ur Specific [place] 1.025 Urine Protein 2+ H Urine Glucose (UA) Negative Urine Ketones Negative Urine Blood Negative Urine Nitrite Negative Urine Bilirubin Negative Urine Urobilinogen Negative Ur Leukocyte Esterase Negative Urine WBC (Auto) 1 Urine RBC (Auto) <1 Ur Epithelial Cells Rare Hyaline Casts 1 Urine Mucus Rare Acetone, Qual Negative Influenza A (Rapid) Negative Influenza B (Rapid) Negative Imaging studies reviewed ASSESSMENT/PLAN: #Sepsis secondary to community acquired pneumonia, leukocytosis , lactic acidosis in an obese man with uncontrolled DM. No obvious consolidations seen on cxr but may be missed due to poor quality film and extreme obesity. Flu swab was negative. -admit to med/surg -gentle IV fluid hydration -repeat lactate to ensure its improvement -ceftriaxone 1g IV q24hrs -azithromycin 500mg IV daily -cough syrup prn -supplemental oxygen via nasal cannula -send sputum culture -send blood cultures x2 -pneumovax if has not received already #CKD- -renal u/s -avoid nephrotoxins -renal consult #IDDM- uncontrolled glucose in hospital -novolog insulin sliding scale -send a1c -tight glucose control in hospital -diabetic diet -statin -ASA -#HTN -c/w home dose hyzaar #DVT ppx- heparin sc Visit type - Emergency Visit Emergency Visit: Yes ED Registration Date: 11/04/18 Care time: The patient presented to the Emergency Department on the above date and was hospitalized for further evaluation of their emergent condition. - New Patient This patient is new to me today: Yes Date on this admission: 11/05/18 - Critical Care Critical Care patient: No
[2018-11-04] MEDS ORDERED: ACETAMINOPHEN 500 MG TABLET (FP) PO PRN (20:20)
[2018-11-04] MEDS ORDERED: SODIUM CHLORIDE 1,000 ML IV SCH (20:30)
[2018-11-04] MEDS ORDERED: HEPARIN NA (PORCINE) 5,000 UNITS/ML 1ML VIAL ONE (22:08)
[2018-11-04] MEDS: HEPARIN NA (PORCINE) 5,000 UNITS/ML 1ML VIAL SQ SCH (22:14)
[2018-11-04] MEDS ORDERED: INSULIN (NOVOLOG) ASPART 100 UNITS/ML 10ML VIAL ONE (22:17)
[2018-11-04] MEDS: INSULIN SLIDING SCALE (NOVOLOG) 1 VIAL SQ SCH (22:23)
[2018-11-05 00:29] LABS: VENOUS PO2 17.8 mmHg (28-48)
[2018-11-05] MEDS: INSULIN SLIDING SCALE (NOVOLOG) 1 VIAL SQ SCH ×4 (06:07→23:33)
[2018-11-05 09:25] LABS: HEMATOCRIT 45.3 % (35.4-49); HEMOGLOBIN 15.1 GM/dL (11.7-16.9); MCH 28.8 pg (25.7-33.7); MCHC 33.4 g/dl (32.0-35.9); MEAN CELL VOLUME 86.4 fl (80-96); MEAN PLT VOLUME 10.1 fl (7.5-11.1); PLATELET COUNT 136 K/MM3 (134-434); RBC 5.25 M/mm3 (4.00-5.60); RDW 14.9 % (11.9-15.9); WHITE BLOOD COUNT 12.1 K/mm3 (4.0-10.0)
[2018-11-05] MEDS ORDERED: cefTRIAXone SODIUM 1 GM VIAL ONE (11:02)
[2018-11-05] MEDS ORDERED: DEXTROSE 5%-WATER - 50 ML IVPB ONE (11:02)
[2018-11-05] MEDS: HEPARIN NA (PORCINE) 5,000 UNITS/ML 1ML VIAL SQ SCH ×2 (11:13→22:45)
[2018-11-05] MEDS: CEFTRIAXONE 1 GM in DEXTROSE 5%-WATER - 50 ML IVPB SCH (11:13)
[2018-11-05] MEDS: AZITHROMYCIN IVPB 500 MG/250 ML BAG IVPB SCH (11:45)
[2018-11-05] MEDS ORDERED: INSULIN (NOVOLOG) ASPART 100 UNITS/ML 10ML VIAL ONE (12:20)
[2018-11-05] MEDS ORDERED: ALBUTEROL SO4 2.5/IPRATROPIUM 0.5 INH SOL 3 ML VIAL.NEB. NEB PRN (13:03)
--- NOTE | 2018-11-05 13:03 | PN ---
Progress Note, Physician Chief Complaint: no distress coughing is less- productive of whitish sputum no chest pain , sob - Current Medication List Current Medications: Active Medications Acetaminophen (Tylenol -) 500 mg PO Q6H PRN PRN Reason: FEVER Guaifenesin (Robitussin -) 10 ml PO Q6H PRN PRN Reason: COUGH Heparin Sodium (Porcine) (Heparin -) 5,000 unit SQ BID [facility] Last Admin: 11/05/18 11:13 Dose: 5,000 unit Azithromycin (Zithromax 500mg Ivpb (Pre-Docked)) 500 mg in 250 mls @ 250 mls/ hr IVPB DAILY [facility] Last Admin: 11/05/18 11:45 Dose: 250 mls/hr Ceftriaxone Sodium 1 gm/ (Dextrose) 50 mls @ 100 mls/hr IVPB DAILY [facility] Last Admin: 11/05/18 11:13 Dose: 100 mls/hr Insulin Aspart (Novolog Vial Sliding Scale -) 1 vial SQ ACHS [facility]; Protocol Last Admin: 11/05/18 12:22 Dose: 10 unit Metoprolol Tartrate (Lopressor -) 50 mg PO DAILY [facility] Non-Formulary Medication (Insulin Detemir [Levemir Flextouch]) 30 unit SQ BID [facility] - Objective Vital Signs: Vital Signs Temperature 100.6 F H 11/05/18 02:14 Pulse Rate 99 H 11/05/18 02:14 Respiratory Rate 18 11/05/18 02:14 Blood Pressure 141/49 L 11/05/18 02:14 O2 Sat by Pulse Oximetry (%) 94 L 11/05/18 02:14 Constitutional: Yes: No Distress, Calm Cardiovascular: Yes: Regular Rate and Rhythm Respiratory: Yes: Diminished. No: Rales, Rhonchi Gastrointestinal: Yes: Normal Bowel Sounds, Soft, Abdomen, Obese. No: Tenderness Edema: Yes Edema: LLE: Trace, RLE: Trace Labs: CBC, BMP 11/05/18 08:30 Problem List - Problems (1) Lactic acidosis Code(s): E87.2 - ACIDOSIS (2) Productive cough Code(s): R05 - COUGH (3) Sepsis Code(s): A41.9 - SEPSIS, UNSPECIFIED ORGANISM (4) Diabetes Code(s): E11.9 - TYPE 2 DIABETES MELLITUS WITHOUT COMPLICATIONS Qualifiers: Diabetes mellitus type: type 1 Diabetes mellitus oil heaterman insulin use: without correction use Diabetes mellitus complication status: without complication Qualified Code(s): E10.9 - Type 1 diabetes mellitus without complications (5) Renal insufficiency Code(s): N28.9 - DISORDER OF KIDNEY AND URETER, UNSPECIFIED (6) Acute on chronic kidney failure Code(s): N17.9 - ACUTE KIDNEY FAILURE, UNSPECIFIED; N18.9 - CHRONIC KIDNEY DISEASE, UNSPECIFIED Assessment/Plan PLAN Sepsis Bronchitis possible pneumonia -- check urine antigens -- sputum cultures -- cultures pending -- on iv antibiotics -- iv fluids Acute on CKD -- iv fluids -- monitor renal function -- avoid NSAIDS Diabetes -- resume Levemir -- check BGM -- HBA1C pending DVT prophylaxis-- heparin SC
[2018-11-05 13:39] LABS: ALBUMIN 2.8 g/dl (3.4-5.0); ALK PHOS 83 U/L (45-117); ANION GAP 11 MMOL/L (8-16); BILIRUBIN,TOTAL 0.5 mg/dL (0.2-1); BLOOD UREA NITROGEN 20 mg/dL (7-18); CALCIUM 8.5 mg/dL (8.5-10.1); CHLORIDE 104 mmol/L (98-107); CO2 23 mmol/L (21-32); CREATININE 1.6 mg/dL (0.55-1.3); GLUCOSE,RANDOM 228 mg/dL (74-106); MAGNESIUM 1.5 mg/dL (1.8-2.4); SGOT/AST 18 U/L (15-37); SGPT/ALT 37 U/L (13-61); SODIUM 138 mmol/L (136-145); TOT PROT 5.9 g/dl (6.4-8.2)
[2018-11-05 15:19] VITALS: BMI 44.0
--- NOTE | 2018-11-05 16:51 | CONSULT ---
Consult Consult Specialty:: Nephrology Reason for Consultation:: CKD - History of Present Illness Chief Complaint: cough History of Present Illness: Pt is a 58 year old male with pmhx of DM, HTN, ckd, and obesity who presents with cough. He was admitted for treatment of PNA vs bronchitis. He was found to have elevated creatinine and I was called to evaluate him. He is aware that he has kidney disease however he has not seen a specialist. He has history of DM for the last ten years. He denies dysuria or hematuria. His urine is foamy at times. His glucose is not controlled. He occasionally uses nsaids. - History Source History Provided By: Patient, Medical Record - Past Medical History Cardio/Vascular: Yes: HTN Renal/: Yes: Renal Inusuff Endocrine: Yes: Diabetes Mellitus Additional Medical History: obesity - Alcohol/Substance Use Hx Alcohol Use: No - Smoking History Smoking history: Never smoked Have you smoked in the past 12 months: No Aproximately how many cigarettes per day: 0 Home Medications - Allergies Allergies/Adverse Reactions: Allergies Allergy/AdvReac Type Severity Reaction Status Date / Time No Known Allergies Allergy Verified 11/04/18 16:42 - Home Medications Home Medications: Ambulatory Orders Metoprolol Tartrate [Lopressor -] 50 mg PO DAILY 03/30/15 Insulin Lispro [Humalog] 0 unit SQ BID 02/26/16 Insulin Detemir [Levemir Flextouch] 30 unit SQ BID 11/04/18 Losartan/Hydrochlorothiazide [Hyzaar 100-25 Tablet] 1 each PO ASDIR 11/04/18 Family Disease History - Family Disease History Family History: Denies Review of Systems - Review of Systems Constitutional: reports: Chills, Malaise Eyes: reports: No Symptoms HENT: reports: No Symptoms Neck: reports: No Symptoms Cardiovascular: reports: No Symptoms Respiratory: reports: Cough, SOB on Exertion Gastrointestinal: reports: No Symptoms Genitourinary: reports: No Symptoms Musculoskeletal: reports: No Symptoms Integumentary: reports: No Symptoms Neurological: reports: No Symptoms Endocrine: reports: No Symptoms Hematology/Lymphatic: reports: No Symptoms Psychiatric: reports: No Symptoms Physical Exam Vital Signs: Vital Signs Temperature 98.4 F 11/05/18 13:45 Pulse Rate 86 11/05/18 13:45 Respiratory Rate 17 11/05/18 13:45 Blood Pressure 122/58 L 11/05/18 13:45 O2 Sat by Pulse Oximetry (%) 94 L 11/05/18 02:14 Constitutional: Yes: Calm Eyes: Yes: Conjunctiva Clear Cardiovascular: Yes: S1, S2 Respiratory: Yes: Wheezes Gastrointestinal: Yes: Soft Renal/: Yes: WNL Musculoskeletal: Yes: WNL Edema: No Neurological: Yes: Oriented Psychiatric: Yes: Oriented Labs: CBC, BMP 11/05/18 08:30 11/05/18 08:30 Laboratory Tests 08/08/12 02/26/16 03/05/16 15:52 19:06 10:00 WBC Hgb Plt Count Potassium BUN Creatinine 1.5 H 2.3 H D 1.6 H D Hemoglobin A1c % Magnesium Urine Protein Urine Blood Influenza A (Rapid) Influenza B (Rapid) 11/23/16 11/04/18 11/04/18 22:46 17:00 17:00 WBC 11.3 H Hgb Plt Count 194 D Potassium BUN Creatinine 1.7 H 1.6 H Hemoglobin A1c % Magnesium Urine Protein Urine Blood Influenza A (Rapid) Influenza B (Rapid) 11/04/18 11/04/18 11/05/18 17:01 19:16 08:30 WBC 12.1 H Hgb 15.1 Plt Count 136 D Potassium BUN Creatinine Hemoglobin A1c % Magnesium Urine Protein 2+ H Urine Blood Negative Influenza A (Rapid) Negative Influenza B (Rapid) Negative 11/05/18 11/05/18 08:30 08:30 WBC Hgb Plt Count Potassium 4.0 BUN 20 H Creatinine 1.6 H Hemoglobin A1c % 9.6 H Magnesium 1.5 L Urine Protein Urine Blood Influenza A (Rapid) Influenza B (Rapid) Imaging - Results Chest X-ray: Report Reviewed Ultrasound: Report Reviewed Problem List - Problems (1) Productive cough Code(s): R05 - COUGH (2) Diabetes Code(s): E11.9 - TYPE 2 DIABETES MELLITUS WITHOUT COMPLICATIONS Qualifiers: Diabetes mellitus type: type 1 Diabetes mellitus custodial insulin use: without local company intermodal truck driver use Diabetes mellitus complication status: without complication Qualified Code(s): E10.9 - Type 1 diabetes mellitus without complications (3) Renal insufficiency Code(s): N28.9 - DISORDER OF KIDNEY AND URETER, UNSPECIFIED Assessment/Plan Current Medications Generic Name Dose Route Start Last Admin Trade Name Freq PRN Reason Stop Dose Admin Acetaminophen 500 mg 11/04/18 20:20 Tylenol - PO Q6H PRN FEVER Albuterol/Ipratropium 1 amp 11/05/18 13:03 Duoneb - NEB Q6H PRN SHORTNESS OF BREATH Guaifenesin 10 ml 11/04/18 20:21 Robitussin - PO Q6H PRN COUGH Heparin Sodium (Porcine) 5,000 unit 11/04/18 22:00 11/05/18 11:13 Heparin - SQ 5,000 unit BID ABBI Administration Azithromycin 500 mg in 250 mls @ 250 mls/hr 11/05/18 10:00 11/05/18 11:45 Zithromax 500mg Ivpb (Pre-Docked) IVPB 250 mls/hr DAILY ABBI Administration Ceftriaxone Sodium 1 gm/ 50 mls @ 100 mls/hr 11/05/18 10:00 11/05/18 11:13 Dextrose IVPB 100 mls/hr DAILY ABBI Administration Insulin Aspart 1 vial 11/04/18 22:00 11/05/18 12:22 Novolog Vial Sliding Scale - SQ 10 unit ACHS ABBI Administration Protocol Insulin Detemir 30 units 11/05/18 22:00 Levemir Vial SQ BIDI [facility] Metoprolol Tartrate 50 mg 11/06/18 10:00 Lopressor - PO DAILY [facility] Impression 1. CKD 2. HTN 3. PNA 4. obesity 5. DM poorly controlled 6. hypomagnesemia Plan - can check prt to medicine assistant ration - restart losartan, should help with proteinuria - will need renal workup, can see in office - renal ultrasound reviewed - avoid nsaids - avoid nephrotoxins - will need better glucose control - replace mag
--- NOTE | 2018-11-05 16:57 | EKG ---
Test Reason : Blood Pressure : / mmHG Vent. Rate : 118 BPM Atrial Rate : 118 BPM P-R Int : 172 ms QRS Dur : 080 ms QT Int : 308 ms P-R-T Axes : 053 -57 025 degrees QTc Int : 431 ms POOR DATA QUALITY, INTERPRETATION MAY BE ADVERSELY AFFECTED SINUS TACHYCARDIA POSSIBLE LEFT ATRIAL ENLARGEMENT PULMONARY DISEASE PATTERN LEFT ANTERIOR FASCICULAR BLOCK LEFT VENTRICULAR HYPERTROPHY ABNORMAL ECG WHEN COMPARED WITH ECG OF 05-MAR-2016 09:08, VENT. RATE HAS INCREASED BY 58 BPM QUESTIONABLE CHANGE IN QRS DURATION Confirmed by SINGH DIOR MD ([id number]) on 11/05/2018 4:57:09 PM Referred By: Confirmed By:SINGH DIOR MD
[2018-11-05] MEDS ORDERED: MAGNESIUM SULF 50% (8.12 MEQ/2 ML-1 GM VIAL) IVPB ONE (16:58)
[2018-11-05] MEDS: guaiFENesin 200 MG/10 ML 10 ML UNIT-DOSE CUPS PO PRN (17:26)
[2018-11-05 20:55] LABS: RATIO URIN PROTEIN/URIN CREAT 0.32 MG/DL
[2018-11-05] MEDS: INSULIN (LEVEMIR) 100 UNITS/ML UNITS SQ SCH (22:45)
[2018-11-06] MEDS: INSULIN (LEVEMIR) 100 UNITS/ML UNITS SQ SCH ×2 (06:30→17:06)
[2018-11-06] MEDS: INSULIN SLIDING SCALE (NOVOLOG) 1 VIAL SQ SCH ×4 (06:31→22:24)
[2018-11-06 08:46] LABS: ALBUMIN 2.4 g/dl (3.4-5.0); ALK PHOS 79 U/L (45-117); ANION GAP 8 MMOL/L (8-16); BILIRUBIN,TOTAL 0.4 mg/dL (0.2-1); BLOOD UREA NITROGEN 20 mg/dL (7-18); CALCIUM 7.9 mg/dL (8.5-10.1); CHLORIDE 101 mmol/L (98-107); CO2 25 mmol/L (21-32); CREATININE 1.5 mg/dL (0.55-1.3); GLUCOSE,RANDOM 271 mg/dL (74-106); SGOT/AST 18 U/L (15-37); SGPT/ALT 34 U/L (13-61); SODIUM 135 mmol/L (136-145); TOT PROT 5.6 g/dl (6.4-8.2)
[2018-11-06] MEDS ORDERED: cefTRIAXone SODIUM 1 GM VIAL ONE (09:57)
[2018-11-06] MEDS ORDERED: DEXTROSE 5%-WATER - 50 ML IVPB ONE (09:57)
[2018-11-06] MEDS: CEFTRIAXONE 1 GM in DEXTROSE 5%-WATER - 50 ML IVPB SCH (10:23)
[2018-11-06] MEDS: AZITHROMYCIN IVPB 500 MG/250 ML BAG IVPB SCH (10:23)
[2018-11-06] MEDS: METOPROLOL TARTRATE 50 MG TABLET (FP) PO SCH (10:23)
[2018-11-06] MEDS: LOSARTAN POTASSIUM 50 MG TABLET (FP) PO SCH (10:23)
[2018-11-06] MEDS: HEPARIN NA (PORCINE) 5,000 UNITS/ML 1ML VIAL SQ SCH ×2 (10:24→22:21)
[2018-11-06] MEDS ORDERED: INSULIN (NOVOLOG) ASPART 100 UNITS/ML 10ML VIAL ONE (12:09)
--- NOTE | 2018-11-06 12:59 | PN ---
Progress Note (short form) - Note Progress Note: pt seen/ examined chart reviewed feels better. cough better low grade temp Vital Signs Temp 99.7 F H 11/06/18 06:00 Pulse 99 H 11/06/18 06:00 Resp 18 11/06/18 06:00 BP 122/61 11/06/18 06:00 Pulse Ox 94 L 11/05/18 21:00 Intake & Output 11/05/18 11/06/18 11/06/18 23:59 11:59 23:59 Intake Total 800 830 Balance 800 830 Weight 343 lb Intake: IVPB 400 Oral 400 830 Other: Voiding Method Toilet Toilet # Unmeasured Voids Void 1 1 Bowel Movement No No Height 6 ft 2 in Body Mass Index (BMI) 44.0 Active Medications Acetaminophen (Tylenol -) 500 mg PO Q6H PRN PRN Reason: FEVER Albuterol/Ipratropium (Duoneb -) 1 amp NEB Q6H PRN PRN Reason: SHORTNESS OF BREATH Guaifenesin (Robitussin -) 10 ml PO Q6H PRN PRN Reason: COUGH Last Admin: 11/05/18 17:26 Dose: 10 ml Heparin Sodium (Porcine) (Heparin -) 5,000 unit SQ BID [facility] Last Admin: 11/06/18 10:24 Dose: 5,000 unit Azithromycin (Zithromax 500mg Ivpb (Pre-Docked)) 500 mg in 250 mls @ 250 mls/ hr IVPB DAILY [facility] Last Admin: 11/06/18 10:23 Dose: 250 mls/hr Ceftriaxone Sodium 1 gm/ (Dextrose) 50 mls @ 100 mls/hr IVPB DAILY [facility] Last Admin: 11/06/18 10:23 Dose: 100 mls/hr Insulin Aspart (Novolog Vial Sliding Scale -) 1 vial SQ ACHS [facility]; Protocol Last Admin: 11/06/18 11:55 Dose: 11 unit Insulin Detemir (Levemir Vial) 34 units SQ BIDI [facility] Losartan Potassium (Cozaar -) 50 mg PO DAILY [facility] Last Admin: 11/06/18 10:23 Dose: 50 mg Metoprolol Tartrate (Lopressor -) 50 mg PO DAILY [facility] Last Admin: 11/06/18 10:23 Dose: 50 mg CBC, BMP 11/05/18 08:11/06/18 06:20 cxr - reviewed bgm - noted Physical Exam. Constitutional: Yes: No Distress, Calm.Comfortable. Obese. Cardiovascular: Yes: Regular Rate and Rhythm Respiratory: Yes: Diminished. No: Rales, Rhonchi Gastrointestinal: Yes: Normal Bowel Sounds, Soft, Abdomen, Obese. No: Tenderness Edema: no Neuro- Alert / awake Problem List - Problems (1) Lactic acidosis Code(s): E87.2 - ACIDOSIS (2) Productive cough Code(s): R05 - COUGH (3) Sepsis Code(s): A41.9 - SEPSIS, UNSPECIFIED ORGANISM (4) Diabetes Code(s): E11.9 - TYPE 2 DIABETES MELLITUS WITHOUT COMPLICATIONS Qualifiers: Diabetes mellitus type: type 1 Diabetes mellitus truck terminal manager insulin use: without assisted use Diabetes mellitus complication status: without complication Qualified Code(s): E10.9 - Type 1 diabetes mellitus without complications (5) Renal insufficiency Code(s): N28.9 - DISORDER OF KIDNEY AND URETER, UNSPECIFIED (6) Acute on chronic kidney failure Code(s): N17.9 - ACUTE KIDNEY FAILURE, UNSPECIFIED; N18.9 - CHRONIC KIDNEY DISEASE, UNSPECIFIED Assessment/Plan Better Continue same oob - chair monitor bgm increase levemir abx compliance is major issue with pt-- counselled again will follow.
--- NOTE | 2018-11-06 16:31 | PN ---
Progress Note, Physician History of Present Illness: Pt seen and examined at bedside. He is awake and alert. He feels much better today. He denies dysuira or hematuria. - Current Medication List Current Medications: Active Medications Acetaminophen (Tylenol -) 500 mg PO Q6H PRN PRN Reason: FEVER Albuterol/Ipratropium (Duoneb -) 1 amp NEB Q6H PRN PRN Reason: SHORTNESS OF BREATH Guaifenesin (Robitussin -) 10 ml PO Q6H PRN PRN Reason: COUGH Last Admin: 11/05/18 17:26 Dose: 10 ml Heparin Sodium (Porcine) (Heparin -) 5,000 unit SQ BID [facility] Last Admin: 11/06/18 10:24 Dose: 5,000 unit Azithromycin (Zithromax 500mg Ivpb (Pre-Docked)) 500 mg in 250 mls @ 250 mls/ hr IVPB DAILY [facility] Last Admin: 11/06/18 10:23 Dose: 250 mls/hr Ceftriaxone Sodium 1 gm/ (Dextrose) 50 mls @ 100 mls/hr IVPB DAILY [facility] Last Admin: 11/06/18 10:23 Dose: 100 mls/hr Insulin Aspart (Novolog Vial Sliding Scale -) 1 vial SQ ACHS [facility]; Protocol Last Admin: 11/06/18 11:55 Dose: 11 unit Insulin Detemir (Levemir Vial) 34 units SQ BIDI [facility] Losartan Potassium (Cozaar -) 50 mg PO DAILY [facility] Last Admin: 11/06/18 10:23 Dose: 50 mg Metoprolol Tartrate (Lopressor -) 50 mg PO DAILY [facility] Last Admin: 11/06/18 10:23 Dose: 50 mg - Objective Vital Signs: Vital Signs Temperature 98.3 F 11/06/18 15:26 Pulse Rate 80 11/06/18 15:26 Respiratory Rate 18 11/06/18 15:26 Blood Pressure 131/71 11/06/18 15:26 O2 Sat by Pulse Oximetry (%) 94 L 11/05/18 21:00 Constitutional: Yes: Calm Eyes: Yes: Conjunctiva Clear HENT: Yes: Atraumatic Cardiovascular: Yes: S1, S2 Respiratory: Yes: CTA Bilaterally Gastrointestinal: Yes: Soft, Abdomen, Obese Genitourinary: Yes: WNL Musculoskeletal: Yes: WNL Edema: No Integumentary: Yes: WNL Neurological: Yes: Oriented Psychiatric: Yes: Oriented Labs: CBC, BMP 11/05/18 08:30 11/06/18 06:20 Problem List - Problems (1) Productive cough Code(s): R05 - COUGH (2) Diabetes Code(s): E11.9 - TYPE 2 DIABETES MELLITUS WITHOUT COMPLICATIONS Qualifiers: Diabetes mellitus type: type 1 Diabetes mellitus watermelon harvesting supervisor insulin use: without watermelon harvesting supervisor use Diabetes mellitus complication status: without complication Qualified Code(s): E10.9 - Type 1 diabetes mellitus without complications (3) Renal insufficiency Code(s): N28.9 - DISORDER OF KIDNEY AND URETER, UNSPECIFIED Assessment/Plan Current Medications Generic Name Dose Route Start Last Admin Trade Name Freq PRN Reason Stop Dose Admin Acetaminophen 500 mg 11/04/18 20:20 Tylenol - PO Q6H PRN FEVER Albuterol/Ipratropium 1 amp 11/05/18 13:03 Duoneb - NEB Q6H PRN SHORTNESS OF BREATH Guaifenesin 10 ml 11/04/18 20:21 11/05/18 17:26 Robitussin - PO 10 ml Q6H PRN Administration COUGH Heparin Sodium (Porcine) 5,000 unit 11/04/18 22:00 11/06/18 10:24 Heparin - SQ 5,000 unit BID ABBI Administration Azithromycin 500 mg in 250 mls @ 250 mls/hr 11/05/18 10:00 11/06/18 10:23 Zithromax 500mg Ivpb (Pre-Docked) IVPB 250 mls/hr DAILY [facility] Administration Ceftriaxone Sodium 1 gm/ 50 mls @ 100 mls/hr 11/05/18 10:00 11/06/18 10:23 Dextrose IVPB 100 mls/hr DAILY [facility] Administration Insulin Aspart 1 vial 11/04/18 22:00 11/06/18 11:55 Novolog Vial Sliding Scale - SQ 11 unit ACHS [facility] Administration Protocol Insulin Detemir 34 units 11/06/18 16:30 Levemir Vial SQ BIDI [facility] Losartan Potassium 50 mg 11/06/18 10:00 11/06/18 10:23 Cozaar - PO 50 mg DAILY [facility] Administration Metoprolol Tartrate 50 mg 11/06/18 10:00 11/06/18 10:23 Lopressor - PO 50 mg DAILY ABBI Administration Laboratory Tests 11/05/18 20:24 Protein/Creatinin Ratio 0.320 Impression 1. CKD 2. HTN 3. PNA 4. obesity 5. DM poorly controlled 6. hypomagnesemia Plan - renal function improved mildly from yesterday - will see pt in office for workup - will need better diabetes control, discussed compliance with pt - avoid nsaids - avoid nephrotoxins - will need better glucose control - cont arb on discharge - recommend weight loss
[2018-11-07] MEDS: guaiFENesin 200 MG/10 ML 10 ML UNIT-DOSE CUPS PO PRN (01:42)
[2018-11-07] MEDS: INSULIN (LEVEMIR) 100 UNITS/ML UNITS SQ SCH ×2 (06:58→17:26)
[2018-11-07] MEDS: INSULIN SLIDING SCALE (NOVOLOG) 1 VIAL SQ SCH ×4 (06:59→21:41)
[2018-11-07 08:08] LABS: BASO % 0.2 % (0-2.0); EOS % 2.7 % (0-4.5); HEMATOCRIT 42.8 % (35.4-49); HEMOGLOBIN 14.2 GM/dL (11.7-16.9); LYMPH % 10.2 % (8-40); MCH 28.6 pg (25.7-33.7); MCHC 33.1 g/dl (32.0-35.9); MEAN CELL VOLUME 86.4 fl (80-96); MONO % 14.9 % (3.8-10.2); PLATELET COUNT 124 K/MM3 (134-434); RBC 4.96 M/mm3 (4.00-5.60); RDW 14.8 % (11.9-15.9); WHITE BLOOD COUNT 4.1 K/mm3 (4.0-10.0)
[2018-11-07 08:39] LABS: ALBUMIN 2.4 g/dl (3.4-5.0); ALK PHOS 78 U/L (45-117); ANION GAP 5 MMOL/L (8-16); BILIRUBIN,TOTAL 0.5 mg/dL (0.2-1); BLOOD UREA NITROGEN 18 mg/dL (7-18); CALCIUM 7.6 mg/dL (8.5-10.1); CHLORIDE 104 mmol/L (98-107); CO2 29 mmol/L (21-32); CREATININE 1.4 mg/dL (0.55-1.3); GLUCOSE,RANDOM 126 mg/dL (74-106); POTASSIUM 3.7 mmol/L (3.5-5.1); SGOT/AST 25 U/L (15-37); SGPT/ALT 37 U/L (13-61); SODIUM 138 mmol/L (136-145); TOT PROT 5.6 g/dl (6.4-8.2)
[2018-11-07] MEDS ORDERED: cefTRIAXone SODIUM 1 GM VIAL ONE (11:01)
[2018-11-07] MEDS ORDERED: PT OWN MED DRAWER 7, Y5N ONE (11:01)
[2018-11-07] MEDS ORDERED: DEXTROSE 5%-WATER - 50 ML IVPB ONE (11:01)
[2018-11-07] MEDS ORDERED: INSULIN (NOVOLOG) ASPART 100 UNITS/ML 10ML VIAL ONE ×2 (11:07→21:28)
[2018-11-07] MEDS: AZITHROMYCIN IVPB 500 MG/250 ML BAG IVPB SCH (11:08)
[2018-11-07] MEDS: HEPARIN NA (PORCINE) 5,000 UNITS/ML 1ML VIAL SQ SCH ×2 (11:08→21:42)
[2018-11-07] MEDS: CEFTRIAXONE 1 GM in DEXTROSE 5%-WATER - 50 ML IVPB SCH (11:08)
[2018-11-07] MEDS: LOSARTAN POTASSIUM 50 MG TABLET (FP) PO SCH (11:09)
[2018-11-07] MEDS: METOPROLOL TARTRATE 50 MG TABLET (FP) PO SCH (11:09)
--- NOTE | 2018-11-07 11:52 | PN ---
Progress Note (short form) - Note Progress Note: pt seen/ examined chart reviewed feels better. cough + but better bgm better Vital Signs Temp 99.4 F 11/07/18 06:00 Pulse 89 11/07/18 06:00 Resp 20 11/07/18 06:00 BP 118/52 L 11/07/18 06:00 Pulse Ox 98 11/06/18 21:00 Intake & Output 11/06/18 11/06/18 11/07/18 11:59 23:59 11:59 Intake Total 830 760 200 Balance 830 760 200 Intake: Oral 830 760 200 Other: Voiding Method Toilet Toilet # Unmeasured Voids Void 1 1 2 Bowel Movement No No Active Medications Acetaminophen (Tylenol -) 500 mg PO Q6H PRN PRN Reason: FEVER Albuterol/Ipratropium (Duoneb -) 1 amp NEB Q6H PRN PRN Reason: SHORTNESS OF BREATH Guaifenesin (Robitussin -) 10 ml PO Q6H PRN PRN Reason: COUGH Last Admin: 11/07/18 01:42 Dose: 10 ml Heparin Sodium (Porcine) (Heparin -) 5,000 unit SQ BID [facility] Last Admin: 11/07/18 11:08 Dose: 5,000 unit Azithromycin (Zithromax 500mg Ivpb (Pre-Docked)) 500 mg in 250 mls @ 250 mls/ hr IVPB DAILY [facility] Last Admin: 11/07/18 11:08 Dose: 250 mls/hr Ceftriaxone Sodium 1 gm/ (Dextrose) 50 mls @ 100 mls/hr IVPB DAILY [facility] Last Admin: 11/07/18 11:08 Dose: 100 mls/hr Insulin Aspart (Novolog Vial Sliding Scale -) 1 vial SQ ACHS [facility]; Protocol Last Admin: 11/07/18 11:22 Dose: 6 unit Insulin Detemir (Levemir Vial) 34 units SQ BIDI [facility] Last Admin: 11/07/18 06:58 Dose: 34 unit Losartan Potassium (Cozaar -) 50 mg PO DAILY [facility] Last Admin: 11/07/18 11:09 Dose: 50 mg Metoprolol Tartrate (Lopressor -) 50 mg PO DAILY [facility] Last Admin: 11/07/18 11:09 Dose: 50 mg CBC, BMP 11/07/18 07:00 11/07/18 07:00 cxr - reviewed bgm - noted Physical Exam. Constitutional: Yes: No Distress, Calm.Comfortable. Obese. Cardiovascular: Yes: Regular Rate and Rhythm Respiratory: Yes: Diminished. No: Rales, Rhonchi Gastrointestinal: Yes: Normal Bowel Sounds, Soft, Abdomen, Obese. No: Tenderness Edema: no Neuro- Alert / awake Problem List - Problems (1) Lactic acidosis Code(s): E87.2 - ACIDOSIS (2) Productive cough Code(s): R05 - COUGH (3) Sepsis Code(s): A41.9 - SEPSIS, UNSPECIFIED ORGANISM (4) Diabetes Code(s): E11.9 - TYPE 2 DIABETES MELLITUS WITHOUT COMPLICATIONS Qualifiers: Diabetes mellitus type: type 1 Diabetes mellitus residential insulin use: without residential use Diabetes mellitus complication status: without complication Qualified Code(s): E10.9 - Type 1 diabetes mellitus without complications (5) Renal insufficiency Code(s): N28.9 - DISORDER OF KIDNEY AND URETER, UNSPECIFIED (6) Acute on chronic kidney failure Code(s): N17.9 - ACUTE KIDNEY FAILURE, UNSPECIFIED; N18.9 - CHRONIC KIDNEY DISEASE, UNSPECIFIED Assessment/Plan Better Continue same abx oob - chair monitor bgm compliance is major issue with pt-- counselled again. will follow. if stable -- will d/c in am.
--- NOTE | 2018-11-07 16:06 | PN ---
Progress Note, Physician History of Present Illness: Pt seen and examined at bedside. He is awake and alert. He denies shortness of breath. - Current Medication List Current Medications: Active Medications Acetaminophen (Tylenol -) 500 mg PO Q6H PRN PRN Reason: FEVER Albuterol/Ipratropium (Duoneb -) 1 amp NEB Q6H PRN PRN Reason: SHORTNESS OF BREATH Guaifenesin (Robitussin -) 10 ml PO Q6H PRN PRN Reason: COUGH Last Admin: 11/07/18 01:42 Dose: 10 ml Heparin Sodium (Porcine) (Heparin -) 5,000 unit SQ BID [facility] Last Admin: 11/07/18 11:08 Dose: 5,000 unit Azithromycin (Zithromax 500mg Ivpb (Pre-Docked)) 500 mg in 250 mls @ 250 mls/ hr IVPB DAILY [facility] Last Admin: 11/07/18 11:08 Dose: 250 mls/hr Ceftriaxone Sodium 1 gm/ (Dextrose) 50 mls @ 100 mls/hr IVPB DAILY [facility] Last Admin: 11/07/18 11:08 Dose: 100 mls/hr Insulin Aspart (Novolog Vial Sliding Scale -) 1 vial SQ ACHS [facility]; Protocol Last Admin: 11/07/18 11:22 Dose: 6 unit Insulin Detemir (Levemir Vial) 34 units SQ BIDI [facility] Last Admin: 11/07/18 06:58 Dose: 34 unit Losartan Potassium (Cozaar -) 50 mg PO DAILY [facility] Last Admin: 11/07/18 11:09 Dose: 50 mg Metoprolol Tartrate (Lopressor -) 50 mg PO DAILY [facility] Last Admin: 11/07/18 11:09 Dose: 50 mg - Objective Vital Signs: Vital Signs Temperature 97.9 F 11/07/18 15:02 Pulse Rate 78 11/07/18 15:02 Respiratory Rate 22 H 11/07/18 15:02 Blood Pressure 135/72 11/07/18 15:02 O2 Sat by Pulse Oximetry (%) 98 11/06/18 21:00 Constitutional: Yes: Calm Eyes: Yes: Conjunctiva Clear HENT: Yes: Atraumatic Cardiovascular: Yes: S1, S2 Respiratory: Yes: CTA Bilaterally Gastrointestinal: Yes: Soft, Abdomen, Obese Genitourinary: Yes: WNL Musculoskeletal: Yes: WNL Edema: No Integumentary: Yes: WNL Neurological: Yes: Oriented Psychiatric: Yes: Oriented Labs: CBC, BMP 11/07/18 07:00 11/07/18 07:00 Problem List - Problems (1) Productive cough Code(s): R05 - COUGH (2) Diabetes Code(s): E11.9 - TYPE 2 DIABETES MELLITUS WITHOUT COMPLICATIONS Qualifiers: Diabetes mellitus type: type 1 Diabetes mellitus terminal superintendent insulin use: without skilled nursing use Diabetes mellitus complication status: without complication Qualified Code(s): E10.9 - Type 1 diabetes mellitus without complications (3) Renal insufficiency Code(s): N28.9 - DISORDER OF KIDNEY AND URETER, UNSPECIFIED Assessment/Plan Current Medications Generic Name Dose Route Start Last Admin Trade Name Freq PRN Reason Stop Dose Admin Acetaminophen 500 mg 11/04/18 20:20 Tylenol - PO Q6H PRN FEVER Albuterol/Ipratropium 1 amp 11/05/18 13:03 Duoneb - NEB Q6H PRN SHORTNESS OF BREATH Guaifenesin 10 ml 11/04/18 20:21 11/07/18 01:42 Robitussin - PO 10 ml Q6H PRN Administration COUGH Heparin Sodium (Porcine) 5,000 unit 11/04/18 22:00 11/07/18 11:08 Heparin - SQ 5,000 unit BID [facility] Administration Azithromycin 500 mg in 250 mls @ 250 mls/hr 11/05/18 10:00 11/07/18 11:08 Zithromax 500mg Ivpb (Pre-Docked) IVPB 250 mls/hr DAILY [facility] Administration Ceftriaxone Sodium 1 gm/ 50 mls @ 100 mls/hr 11/05/18 10:00 11/07/18 11:08 Dextrose IVPB 100 mls/hr DAILY [facility] Administration Insulin Aspart 1 vial 11/04/18 22:00 11/07/18 11:22 Novolog Vial Sliding Scale - SQ 6 unit ACHS [facility] Administration Protocol Insulin Detemir 34 units 11/06/18 16:30 11/07/18 06:58 Levemir Vial SQ 34 unit BIDI [facility] Administration Losartan Potassium 50 mg 11/06/18 10:00 11/07/18 11:09 Cozaar - PO 50 mg DAILY [facility] Administration Metoprolol Tartrate 50 mg 11/06/18 10:00 11/07/18 11:09 Lopressor - PO 50 mg DAILY [facility] Administration Impression 1. CKD 2. HTN 3. PNA 4. obesity 5. DM poorly controlled 6. hypomagnesemia Plan - cont cozzar - note low albumin - will need outpt workup - will need better diabetes control - avoid nsaids - avoid nephrotoxins - recommend weight loss
[2018-11-08 06:40] VITALS: PULSE 74; TEMP 98.2
[2018-11-08] MEDS: INSULIN SLIDING SCALE (NOVOLOG) 1 VIAL SQ SCH ×2 (07:07→13:06)
[2018-11-08] MEDS: INSULIN (LEVEMIR) 100 UNITS/ML UNITS SQ SCH (07:08)
[2018-11-08] MEDS ORDERED: DEXTROSE 5%-WATER - 50 ML IVPB ONE (10:08)
[2018-11-08] MEDS ORDERED: cefTRIAXone SODIUM 1 GM VIAL ONE (10:08)
[2018-11-08] MEDS: AZITHROMYCIN IVPB 500 MG/250 ML BAG IVPB SCH (10:14)
[2018-11-08] MEDS: CEFTRIAXONE 1 GM in DEXTROSE 5%-WATER - 50 ML IVPB SCH (10:14)
[2018-11-08] MEDS: METOPROLOL TARTRATE 50 MG TABLET (FP) PO SCH (10:14)
[2018-11-08] MEDS: LOSARTAN POTASSIUM 50 MG TABLET (FP) PO SCH (10:14)
--- NOTE | 2018-11-08 11:03 | DS ---
Physical Examination Vital Signs: Vital Signs Temperature 98.2 F 11/08/18 06:00 Pulse Rate 74 11/08/18 06:00 Respiratory Rate 20 11/08/18 06:00 Blood Pressure 141/74 11/08/18 06:00 O2 Sat by Pulse Oximetry (%) 98 11/07/18 21:00 Findings/Remarks: pt seen/ examined feels good no complains Constitutional: Yes: No Distress, Calm Eyes: Yes: Conjunctiva Clear Neck: Yes: Supple Cardiovascular: Yes: Regular Rate and Rhythm Respiratory: Yes: CTA Bilaterally Gastrointestinal: Yes: Soft Edema: No Neurological: Yes: Alert Labs: CBC, BMP 11/07/18 07:00 11/07/18 07:00 Discharge Summary Reason For Visit: PRODUCTIVE COUGH,SEPSIS,LACTIC ACIDOSIS Current Active Problems Acute on chronic kidney failure (Acute) Lactic acidosis (Acute) Productive cough (Acute) Sepsis (Acute) Hospital Course: admitted for cough/ bronchitis/ uncontrolled sugar treated with abx insulin adjusted compliance stressed stable for d/c meds reconciled f/u office 2 weeks pt in agreement. Condition: Improved - Instructions Referrals: Carol Alejo MD [Primary Care Provider] - Disposition: HOME - Home Medications Comprehensive Discharge Medication List: Ambulatory Orders Metoprolol Tartrate [Lopressor -] 50 mg PO DAILY 03/30/15 Insulin Lispro [Humalog] 0 unit SQ BID 02/26/16 Losartan/Hydrochlorothiazide [Hyzaar 100-25 Tablet] 1 each PO [facility] 11/04/18 Acetaminophen [Tylenol .Extra-Strength -] 500 mg PO Q6H PRN tablet 11/08/18 Insulin (Levemir) [Levemir Vial] 34 units SQ BIDI units 11/08/18
[2018-11-08] MEDS: HEPARIN NA (PORCINE) 5,000 UNITS/ML 1ML VIAL SQ SCH (12:20)
[2018-11-08 16:08] VITALS: BP 135/75
== END 2018-11-08 13:18 | disposition home or self-care (01) | DRG 871 ==
LOC: JER 16:18 → JERBED 18:38 → J5S 11-05 04:26
PROVIDERS: ADMIT Internal Medicine; ATTEND Internal Medicine
DX: A41.9 Sepsis, unspecified organism (principal); J18.9 Pneumonia, unspecified organism; E87.2 Acidosis; Z68.41 Body mass index [BMI] 40.0-44.9, adult; N17.9 Acute kidney failure, unspecified; E11.65 Type 2 diabetes mellitus with hyperglycemia; I12.9 Hypertensive chronic kidney disease with stage 1 through stage 4 chronic kidney disease, or unspecified chronic kidney disease; N18.9 Chronic kidney disease, unspecified; E66.9 Obesity, unspecified; E83.42 Hypomagnesemia; J40 Bronchitis, not specified as acute or chronic
CPT/HCPCS: 36415; 71045-TC-FY; 76775-TC; 80053; 81003; 81015; 82009; 82570; 82803; 82962; 83036; 83605; 83735; 83880; 84156; 84484; 85025; 85027; 87040; 87086; 87804; 87899; 93005; 93010; 99284-25; J0131; J1644; J7030

== ENCOUNTER 2020-06-23 05:40 | Day surgery (SDC) | payer OTHER ==
[2020-06-19 08:55] VITALS: BMI 43.6
--- OUTSIDE RECORDS SUMMARY | 2020-06-23 05:44 | XMS ---
:1960 Author Organization [facility] Support Name Relationship Address Phone KAYLENE HANSEN [address] [place] [address] [facility] Unavailable [address] [place] [address] ELIZABETH DUEÑAS SISTER [address] [place] [address] Re-disclosure Warning The records that you are about to access may contain information from federally- assisted alcohol or drug abuse programs. If such information is present, then the following federally mandated warning applies: This information has been disclosed to you from records protected by federal confidentiality rules (42 CFR part 2). The federal rules prohibit you from making any further disclosure of this information unless further disclosure is expressly permitted by the written consent of the person to whom it pertains or as otherwise permitted by 42 CFR part 2. A general authorization for the release of medical or other information is NOT sufficient for this purpose. The Federal rules restrict any use of the information to criminally investigate or prosecute any alcohol or drug abuse patient.The records that you are about to access may contain highly sensitive health information, the redisclosure of which is protected by Article 27-F of the [facility] Public Health law. If you continue you may haveaccess to information: Regarding HIV / AIDS; Provided by facilities licensed or operated by the [facility] Office of Mental Health; or Provided by the [facility] Office for People With Developmental Disabilities. If such information is present, then the following [facility] mandated warning applies: This information has been disclosed to you from confidential records which are protected by state law. State law prohibits you from making any further disclosure of this information without the specific written consent of the person to whom it pertains, or as otherwise permitted by law. Any unauthorized further disclosure in violation of state law may result in a fine or usp sentence or both. A general authorization for the release of medical or other information is NOT sufficient authorization for further disclosure. Insurance Providers Payer name Policy type Policy ID Covered Covered green party's Policy P jesus / Coverage green party ID relationship to Sen Inf ormation type sen LOCAL [id number] [facility] Results ID Date Data Source [id number] 06/19/2020 09:45:00 AM EDT [facility] Name Value Range Interpretation Description Data Sup porting Code Source(s) Document(s ) SARS [facility] coronavirus 2 RNA This lab was ordered by [facility] and reported by [facility]. ID Date Data Source [id number] 12/14/2019 11:18:00 AM EDT [facility] Name Value Range Interpretation Code Description Data Jennifer rce(s) Supporting Document(s ) Overall [facility] Result: This lab was ordered by [facility] and reported by [facility]. Procedure
[2020-06-23 07:51] VITALS: TEMP 98.4
[2020-06-23 09:26] VITALS: BP 131/80; PULSE 65
--- NOTE | 2020-06-26 17:03 | PATH ---
Surgical Pathology Report Patient Name: ZEV BETTENCOURT [facility]. Rec. #: [id number] /Age/Gender: 1960 (Age: 59) / M Account: [id number] Location: U-ENDOSCOPY Taken: 06/23/2020 Received: 06/23/2020 Reported: 06/26/2020 Physicians: Orin Daniel M.D. Specimen(s) Received A: BULB AND SECOND PORTION OF DUODENUM B: GASTRIC ANTRUM C: GASTRIC BODY D: TRANSVERSE COLON POLYP E: CECAL POLYP Clinical History Occult bleeding Postoperative diagnosis: Hiatal hernia, gastritis, colon polyps Final Diagnosis A. DUODENUM, SECOND PORTION AND BULB, BIOPSY: DUODENAL MUCOSA WITHOUT SIGNIFICANT PATHOLOGIC FINDINGS. B. STOMACH, GASTRIC ANTRUM, BIOPSY: GASTRIC ANTRAL MUCOSA WITH SEVERE CHRONIC ACTIVE GASTRITIS. IMMUNOHISTOCHEMICAL STAIN FOR H. PYLORI IS POSITIVE (FEW). C. GASTRIC BODY, BIOPSY: GASTRIC BODY MUCOSA WITH SEVERE CHRONIC ACTIVE GASTRITIS. IMMUNOHISTOCHEMICAL STAIN FOR H. PYLORI IS POSITIVE (MANY). D. TRANSVERSE COLON, POLYP, BIOPSY: TUBULAR ADENOMA. E. CECAL POLYPS, POLYPECTOMY: TUBULAR ADENOMA(S). SEPARATE FRAGMENT OF POLYPOID COLONIC MUCOSA WITH PROMINENT LYMPHOID AGGREGATE. Positive and negative controls (internal if applicable) show appropriate results. Electronically Signed Cait Linda M.D. Gross Description A. Received in formalin, labeled "biopsy bulb and second portion of duodenum" are 3 delvalle, irregular portions of soft tissue ranging from 0.2-0.3 cm. in greatest dimension. The specimens are submitted in toto in one cassette. B. Received in formalin, labeled "biopsy antrum" is a delvalle, irregular portion of soft tissue measuring 0.3 cm. in greatest dimension. The specimen is submitted in toto in one cassette. C. Received in formalin, labeled "biopsy gastric body" are 3 delvalle, irregular portions of soft tissue ranging from 0.1-0.3 cm. in greatest dimension. The specimens are submitted in toto in one cassette. D. Received in formalin, labeled "biopsy transverse colon polyp" are 2 delvalle, irregular portions of soft tissue measuring 0.2 and 0.3 cm. in greatest dimension. The specimens are submitted in toto in one cassette. E. Received in formalin labeled "cecal polyps," is a 0.8 x 0.6 x 0.2 cm aggregate of delvalle soft tissue fragments. The formalin is filtered and the specimen is entirely submitted in one cassette. 06/23/2020 [facility]06/23/2020
== END 2020-06-23 09:50 | disposition home or self-care (01) ==
LOC: JASU-ENDO 05:40
PROVIDERS: ATTEND Internal Medicine Gastroenterology
PROC: 0DBH8ZX Excision of Cecum, Via Natural or Artificial Opening Endoscopic, Diagnostic (ICD-10-PCS; 2020-06-23)
PROC: 0DBL8ZX Excision of Transverse Colon, Via Natural or Artificial Opening Endoscopic, Diagnostic (ICD-10-PCS; 2020-06-23)
PROC: 0DBH8ZX Excision of Cecum, Via Natural or Artificial Opening Endoscopic, Diagnostic (ICD-10-PCS; principal; 2020-06-23 08:00)
DX: Z09 Encounter for follow-up examination after completed treatment for conditions other than malignant neoplasm (principal); Z86.010 Personal history of colon polyps; D12.0 Benign neoplasm of cecum; D12.3 Benign neoplasm of transverse colon; K29.50 Unspecified chronic gastritis without bleeding; B96.81 Helicobacter pylori [H. pylori] as the cause of diseases classified elsewhere; E11.9 Type 2 diabetes mellitus without complications; Z79.4 Long term (current) use of insulin; E66.01 Morbid (severe) obesity due to excess calories; Z68.41 Body mass index [BMI] 40.0-44.9, adult; Z85.46 Personal history of malignant neoplasm of prostate; Z08 Encounter for follow-up examination after completed treatment for malignant neoplasm; Z92.3 Personal history of irradiation; R19.5 Other fecal abnormalities; R12 Heartburn
CPT/HCPCS: 88305-TC; 88342-TC

== ENCOUNTER 2021-06-12 10:59 | Emergency (ER) | payer OTHER ==
[2021-06-12 11:17] VITALS: BP 118/75; PULSE 72; TEMP 98.1; BMI 42.8
== END 2021-06-12 12:43 | disposition home or self-care (01) ==
LOC: JERFT 10:59
DX: H61.23 Impacted cerumen, bilateral (principal)
CPT/HCPCS: 99283-25

== ENCOUNTER 2021-07-30 09:28 | Emergency (ER) | payer OTHER ==
[2021-07-30 09:41] VITALS: BP 119/75; PULSE 96; TEMP 97.8; BMI 43.5
== END 2021-07-30 11:35 | disposition home or self-care (01) ==
LOC: JER 09:28
DX: J06.9 Acute upper respiratory infection, unspecified (principal)
CPT/HCPCS: 71046-TC-FY; 99283-25

== ENCOUNTER 2022-03-31 15:50 | Emergency (ER) | payer OTHER ==
[2022-03-31 16:11] VITALS: BP 121/72; PULSE 90; RESP 20; TEMP 99.2; BMI 46.1
== END 2022-03-31 18:05 | disposition home or self-care (01) ==
LOC: FER 15:50 → SUPCPDRO 15:50 → FER 18:05
DX: U07.1 COVID-19 (principal)
CPT/HCPCS: 0241U-QW; 71046-TC-FY; 99284-25

== ENCOUNTER 2022-04-01 11:45 | Emergency (ER) | payer OTHER ==
[2022-04-01 12:02] VITALS: RESP 18; BMI 46.1
[2022-04-01] MEDS ORDERED: BEBTELOVIMAB (EUA) 175 MG/2 ML VIAL IVPUSH ONE (12:46)
[2022-04-01] MEDS ORDERED: SODIUM CHLORIDE 0.9% 500 ML INFUS.BAG IV ONE (12:47)
[2022-04-01 15:25] VITALS: BP 110/65; PULSE 73; TEMP 97.9
== END 2022-04-01 16:56 | disposition home or self-care (01) ==
LOC: JER 11:45
DX: U07.1 COVID-19 (principal)
CPT/HCPCS: 96374; 99283-25; M0222; Q0222

== ENCOUNTER 2022-04-02 15:34 | Emergency (ER) | payer OTHER ==
[2022-04-02 15:50] VITALS: BP 142/86; PULSE 81; RESP 20; TEMP 98.2; BMI 52.7
== END 2022-04-02 16:52 | disposition home or self-care (01) ==
LOC: FER 15:34
DX: H61.22 Impacted cerumen, left ear (principal)
CPT/HCPCS: 99281-25

== ENCOUNTER 2022-09-24 09:15 | Emergency (ER) | payer OTHER ==
[2022-09-24 09:31] VITALS: BP 138/80; PULSE 72; RESP 20; TEMP 98.3; BMI 40.8
== END 2022-09-24 10:23 | disposition home or self-care (01) ==
LOC: FER 09:15
DX: R35.0 Frequency of micturition (principal)
CPT/HCPCS: 81003; 82962; 87086; 99283-25

== ENCOUNTER 2023-06-09 01:08 | Emergency (ER) | payer OTHER ==
[2023-06-09 01:15] VITALS: BMI 42.2
[2023-06-09] MEDS ORDERED: FAMOTIDINE 20 MG/50 ML IVPB 20 MG/50 ML MG IVPB ONE ×2 (02:02→02:36)
[2023-06-09] MEDS ORDERED: ACETAMINOPHEN 1000 MG/100 ML BAG IVPB ONE (02:02)
[2023-06-09] MEDS ORDERED: SODIUM CHLORIDE 0.9% 500 ML INFUS.BAG IV ONE (02:02)
[2023-06-09 02:35] LABS: PH,URINE 5.5 (5.0-8.0); URINE APPEARANCE CLEAR; URINE BILIRUBIN NEGATIVE (NEGATIVE); URINE COLOR YELLOW; URINE GLUCOSE (UA) NEGATIVE (NEGATIVE); URINE KETONE NEGATIVE (NEGATIVE); URINE LEUK ESTERASE NEGATIVE (NEGATIVE); URINE NITRITE NEGATIVE (NEGATIVE); URINE PROTEIN NEGATIVE (NEGATIVE); URINE UROBILINOGEN 0.2 mg/dL (0.2-1.0)
[2023-06-09] MEDS ORDERED: ACETAMINOPHEN INJECTION 100 ML IVPB ONE (02:36)
[2023-06-09 02:37] LABS: BASO % 0.4 % (0-2.0); EOS % 4.7 % (0-4.5); HEMATOCRIT 43.2 % (35.4-49); HEMOGLOBIN 14.3 GM/dL (11.7-16.9); LYMPH % 24.3 % (8-40); MCH 27.4 pg (25.7-33.7); MCHC 33.1 g/dl (32.0-35.9); MEAN CELL VOLUME 82.7 fl (80-96); MEAN PLT VOLUME 10.5 fl (7.5-11.1); MONO % 8.7 % (3.8-10.2); NEUT % 61.9 % (42.8-82.8); PLATELET COUNT 161 10^3/uL (134-434); RBC 5.23 M/mm3 (4.00-5.60); RDW 14.4 % (11.9-15.9); WHITE BLOOD COUNT 5.4 K/mm3 (4.0-10.0)
[2023-06-09 02:53] LABS: POTASSIUM 4.5 mmol/L (3.5-5.1)
[2023-06-09 02:55] LABS: CALCIUM 9.3 mg/dL (8.5-10.1)
[2023-06-09 02:56] LABS: ALBUMIN 3.4 g/dl (3.4-5.0); BLOOD UREA NITROGEN 29.8 mg/dL (7-18)
[2023-06-09 02:59] LABS: CREATININE 1.6 mg/dL (0.55-1.3)
[2023-06-09 03:00] LABS: BILIRUBIN,TOTAL 0.5 mg/dL (0.2-1)
[2023-06-09 05:44] VITALS: BP 145/63; PULSE 64; RESP 15; TEMP 97.9
== END 2023-06-09 06:38 | disposition home or self-care (01) ==
LOC: JER 01:08
PROC: 3E033GC Introduction of Other Therapeutic Substance into Peripheral Vein, Percutaneous Approach (ICD-10-PCS; principal; 2023-06-09)
PROC: 3E033GC Introduction of Other Therapeutic Substance into Peripheral Vein, Percutaneous Approach (ICD-10-PCS; 2023-06-09)
DX: R10.11 Right upper quadrant pain (principal)
CPT/HCPCS: 36415; 74177-TC; 80053; 81003; 83690; 84484; 85025; 87086; 99285-25; Q9967

== ENCOUNTER 2023-10-21 21:02 | Emergency (ER) | payer OTHER ==
[2023-10-21 21:37] VITALS: BP 110/62; PULSE 96; RESP 16; TEMP 97.8; BMI 46.1
== END 2023-10-21 21:43 | disposition home or self-care (01) ==
LOC: FER 21:02
DX: R11.10 Vomiting, unspecified (principal); R19.7 Diarrhea, unspecified; M79.10 Myalgia, unspecified site; R50.9 Fever, unspecified; K52.9 Noninfective gastroenteritis and colitis, unspecified; Z20.822 Contact with and (suspected) exposure to COVID-19
CPT/HCPCS: 0241U-QW; 99283-25

== ENCOUNTER 2023-11-12 08:11 | Emergency (ER) | payer OTHER ==
[2023-11-12 08:33] VITALS: BP 125/77; PULSE 70; RESP 18; TEMP 98.5; BMI 46.8
[2023-11-12 09:52] LABS: BASO % 0.8 % (0-2.0); EOS % 5.3 % (0-4.5); HEMATOCRIT 41.3 % (35.4-49); HEMOGLOBIN 13.6 GM/dL (11.7-16.9); LYMPH % 24.7 % (8-40); MCH 27.2 pg (25.7-33.7); MCHC 32.9 g/dl (32.0-35.9); MEAN CELL VOLUME 82.7 fl (80-96); MEAN PLT VOLUME 8.8 fl (7.5-11.1); MONO % 13.6 % (3.8-10.2); NEUT % 55.6 % (42.8-82.8); PLATELET COUNT 139 10^3/uL (134-434); RBC 4.99 M/mm3 (4.00-5.60); RDW 14.1 % (11.9-15.9); WHITE BLOOD COUNT 4.3 K/mm3 (4.0-10.0)
[2023-11-12 10:12] LABS: PH,URINE 5.5 (5.0-8.0); URINE APPEARANCE CLEAR; URINE BILIRUBIN NEGATIVE (NEGATIVE); URINE COLOR YELLOW; URINE GLUCOSE (UA) NEGATIVE (NEGATIVE); URINE KETONE NEGATIVE (NEGATIVE); URINE LEUK ESTERASE NEGATIVE (NEGATIVE); URINE NITRITE NEGATIVE (NEGATIVE); URINE PROTEIN NEGATIVE (NEGATIVE)
[2023-11-12 10:31] LABS: POTASSIUM 4.5 mmol/L (3.5-5.1)
[2023-11-12 10:34] LABS: CALCIUM 9.4 mg/dL (8.5-10.1)
[2023-11-12 10:35] LABS: ALBUMIN 3.3 g/dl (3.4-5.0); BLOOD UREA NITROGEN 29.4 mg/dL (7-18)
[2023-11-12 10:38] LABS: CREATININE 1.7 mg/dL (0.55-1.3)
[2023-11-12 10:39] LABS: BILIRUBIN,TOTAL 0.6 mg/dL (0.2-1); TOT PROT 6.8 g/dl (6.4-8.2)
[2023-11-12] MEDS: SODIUM CHLORIDE 0.9% 500 ML INFUS.BAG IV ONE (12:02)
== END 2023-11-12 12:14 | disposition home or self-care (01) ==
LOC: JER 08:11
DX: R10.9 Unspecified abdominal pain (principal); M54.6 Pain in thoracic spine
CPT/HCPCS: 36415; 71046-TC-FY; 74176-TC; 80053; 81003; 85025; 87086; 99285-25

== ENCOUNTER 2023-11-28 07:54 | Emergency (ER) | payer OTHER ==
[2023-11-28 08:02] VITALS: BP 120/69; PULSE 76; RESP 22; TEMP 97.7; BMI 47.5
[2023-11-28 08:38] LABS: EPI CELLS 1 /uL (0-25.1); HYALINE CASTS 2 /uL (0-3.1); URINE APPEARANCE CLEAR; URINE BACTERIA 2499 /uL (0-1359); URINE BILIRUBIN NEGATIVE (NEGATIVE); URINE COLOR YELLOW; URINE GLUCOSE (UA) NEGATIVE (NEGATIVE); URINE KETONE NEGATIVE (NEGATIVE); URINE LEUK ESTERASE 2+ (NEGATIVE); URINE NITRITE NEGATIVE (NEGATIVE); URINE PROTEIN NEGATIVE (NEGATIVE); URINE RBC 223 /uL (0-23.9); URINE WBC 954 /uL (0-25.8)
== END 2023-11-28 09:45 | disposition home or self-care (01) ==
LOC: JER 07:54
DX: R31.9 Hematuria, unspecified (principal); R35.0 Frequency of micturition; R39.15 Urgency of urination; N39.0 Urinary tract infection, site not specified
CPT/HCPCS: 81003; 82962; 87086; 87186; 99283-25

== ENCOUNTER 2024-02-01 09:57 | Observation (INO) | payer OTHER ==
[2024-02-01 13:11] LABS: BASO % 0.4 % (0-2.0); EOS % 2.7 % (0-4.5); HEMATOCRIT 39.2 % (35.4-49); HEMOGLOBIN 12.7 GM/dL (11.7-16.9); LYMPH % 10.6 % (8-40); MCH 26.8 pg (25.7-33.7); MCHC 32.5 g/dl (32.0-35.9); MEAN CELL VOLUME 82.6 fl (80-96); MEAN PLT VOLUME 8.9 fl (7.5-11.1); MONO % 9.3 % (3.8-10.2); PLATELET COUNT 138 10^3/uL (134-434); RBC 4.75 M/mm3 (4.00-5.60); RDW 14.7 % (11.9-15.9); WHITE BLOOD COUNT 7.7 K/mm3 (4.0-10.0)
[2024-02-01 13:20] LABS: POTASSIUM 3.7 mmol/L (3.5-5.1)
[2024-02-01 13:22] LABS: CALCIUM 8.9 mg/dL (8.5-10.1)
[2024-02-01 13:23] LABS: ALBUMIN 3.2 g/dl (3.4-5.0); BLOOD UREA NITROGEN 24.5 mg/dL (7-18)
[2024-02-01 13:26] LABS: CREATININE 1.5 mg/dL (0.55-1.3)
[2024-02-01 13:27] LABS: BILIRUBIN,TOTAL 0.7 mg/dL (0.2-1)
[2024-02-01 13:28] LABS: TOT PROT 6.8 g/dl (6.4-8.2)
[2024-02-01] MEDS ORDERED: DEXTROSE 50%-WATER 25 GM/50 ML DISP.SYRIN ONE (13:50)
[2024-02-01] MEDS: DEXTROSE 50%-WATER - 25 GM/50 ML VIAL IVPUSH ONE (13:54)
[2024-02-01] MEDS ORDERED: VANCOMYCIN PREMIX 1.5 GM 1,500 MG/300 ML BAG IVPB ONE (14:43)
[2024-02-01] MEDS: VANCOMYCIN PREMIX 1.5 GM 1,500 MG/300 ML BAG IVPB ONE (16:59)
[2024-02-01] MEDS: INSULIN ASPART SLIDING SCALE (NOVOLOG) 1 VIAL SQ SCH (17:00)
[2024-02-01] MEDS: VANCOMYCIN HCL 1,500 MG in DEXTROSE 5%-WATER - 500 ML IVPB ONE (17:31)
[2024-02-01] MEDS ORDERED: PIPERACILLIN/TAZOB 3.375 GM 3.375 GM/50 ML BAG IVPB ONE (19:36)
[2024-02-01] MEDS: PIPERACILLIN/TAZOB 3.375 GM 3.375 GM in DEXTROSE 5%-WATER - 50 ML IVPB SCH (19:48)
[2024-02-01] MEDS ORDERED: HEPARIN NA (PORCINE) 5,000 UNITS/ML 1ML VIAL ONE (21:56)
[2024-02-01] MEDS ORDERED: ATORVASTATIN CA 40 MG TABLET (FP) ONE (21:56)
[2024-02-01] MEDS ORDERED: ATORVASTATIN CA 40 MG TABLET (FP) PO SCH (22:00)
[2024-02-01] MEDS: HEPARIN NA (PORCINE) 5,000 UNITS/ML 1ML VIAL SQ SCH (22:06)
[2024-02-01] MEDS: ATORVASTATIN CA 40 MG TABLET (FP) PO SCH (22:07)
[2024-02-02 01:27] VITALS: BMI 48.6
[2024-02-02] MEDS ORDERED: PIPERACILLIN/TAZOB 3.375 GM 3.375 GM in DEXTROSE 5%-WATER - 50 ML IVPB SCH (02:00)
[2024-02-02] MEDS: LOSARTAN 50MG/HCTZ 12.5MG 1 TAB PO SCH (09:08)
[2024-02-02] MEDS: LACTOBACILLUS ACIDOPHILUS 1 TABLET PO SCH (12:41)
[2024-02-02] MEDS: INSULIN (LEVEMIR) 100 UNITS/ML UNITS SQ ONE (12:42)
[2024-02-02] MEDS: CLINDAMYCIN 600MG PREMIX IVPB 600 MG/50 ML BAG IVPB SCH (12:45)
[2024-02-02 13:50] LABS: URINE APPEARANCE CLEAR; URINE BILIRUBIN NEGATIVE (NEGATIVE); URINE COLOR YELLOW; URINE GLUCOSE (UA) NEGATIVE (NEGATIVE); URINE KETONE NEGATIVE (NEGATIVE); URINE LEUK ESTERASE NEGATIVE (NEGATIVE); URINE NITRITE NEGATIVE (NEGATIVE); URINE PROTEIN NEGATIVE (NEGATIVE)
[2024-02-02] MEDS: INSULIN (LEVEMIR) 100 UNITS/ML UNITS SQ SCH (21:34)
[2024-02-02] MEDS ORDERED: INSULIN (LEVEMIR) 100 UNITS/ML UNITS SQ SCH (22:00)
[2024-02-03 09:37] LABS: BASO % 0.6 % (0-2.0); EOS % 10.5 % (0-4.5); HEMATOCRIT 37.7 % (35.4-49); HEMOGLOBIN 12.1 GM/dL (11.7-16.9); LYMPH % 23.5 % (8-40); MCH 26.6 pg (25.7-33.7); MEAN CELL VOLUME 83.1 fl (80-96); MEAN PLT VOLUME 9.4 fl (7.5-11.1); MONO % 16.7 % (3.8-10.2); NEUT % 48.7 % (42.8-82.8); PLATELET COUNT 139 10^3/uL (134-434); RBC 4.54 M/mm3 (4.00-5.60); WHITE BLOOD COUNT 3.3 K/mm3 (4.0-10.0)
[2024-02-03 09:55] LABS: POTASSIUM 4.2 mmol/L (3.5-5.1)
[2024-02-03 10:12] LABS: CALCIUM 8.8 mg/dL (8.5-10.1)
[2024-02-03 10:13] LABS: ALBUMIN 2.8 g/dl (3.4-5.0); BLOOD UREA NITROGEN 20.2 mg/dL (7-18)
[2024-02-03 10:16] LABS: CREATININE 1.4 mg/dL (0.55-1.3)
[2024-02-03 10:17] LABS: BILIRUBIN,TOTAL 0.7 mg/dL (0.2-1); TOT PROT 6.4 g/dl (6.4-8.2)
[2024-02-03] MEDS: INSULIN (LEVEMIR) 100 UNITS/ML UNITS SQ SCH (21:59)
[2024-02-04] MEDS: ACETAMINOPHEN 325 MG TABLET (FP) PO PRN (01:33)
[2024-02-04] MEDS ORDERED: FUROSEMIDE 40 MG/4 ML INJECTABLE VIAL IVPUSH ONE (12:15)
[2024-02-04] MEDS: TORSEMIDE 20 MG TABLET (FP) PO ONE (13:24)
[2024-02-04] MEDS: INSULIN (LEVEMIR) 100 UNITS/ML UNITS SQ ONE (13:24)
[2024-02-04] MEDS: CEFAZOLIN SODIUM 2 GM in DEXTROSE 5%-WATER 100 ML IVPB SCH (15:33)
[2024-02-04] MEDS: CEFAZOLIN SODIUM 2 GM VIAL IVPB SCH (15:36)
[2024-02-04] MEDS: INSULIN (LEVEMIR) 100 UNITS/ML UNITS SQ SCH (21:21)
[2024-02-05 14:57] VITALS: RESP 18
[2024-02-05] MEDS: INSULIN (LEVEMIR) 100 UNITS/ML UNITS SQ SCH (22:27)
[2024-02-06] MEDS ORDERED: INSULIN (LEVEMIR) 100 UNITS/ML UNITS SQ ONE (08:49)
[2024-02-06 09:28] VITALS: BP 145/79; PULSE 75; TEMP 97.7
== END 2024-02-06 12:47 | disposition home or self-care (01) ==
LOC: JER 09:57 → JERBED 13:50 → INTOOBSV 13:50 → J6S 23:10
PROVIDERS: ADMIT Internal Medicine; ATTEND Internal Medicine
PROC: 3E03329 Introduction of Other Anti-infective into Peripheral Vein, Percutaneous Approach (ICD-10-PCS; principal; 2024-02-01)
PROC: 3E0337Z Introduction of Electrolytic and Water Balance Substance into Peripheral Vein, Percutaneous Approach (ICD-10-PCS; 2024-02-01)
PROC: 3E023GC Introduction of Other Therapeutic Substance into Muscle, Percutaneous Approach (ICD-10-PCS; 2024-02-01)
PROC: 3E013VG Introduction of Insulin into Subcutaneous Tissue, Percutaneous Approach (ICD-10-PCS; 2024-02-01)
DX: L03.115 Cellulitis of right lower limb (principal); E11.22 Type 2 diabetes mellitus with diabetic chronic kidney disease; I12.9 Hypertensive chronic kidney disease with stage 1 through stage 4 chronic kidney disease, or unspecified chronic kidney disease; N18.9 Chronic kidney disease, unspecified; R79.9 Abnormal finding of blood chemistry, unspecified; E66.01 Morbid (severe) obesity due to excess calories; Z68.42 Body mass index [BMI] 45.0-49.9, adult; Z85.46 Personal history of malignant neoplasm of prostate; E78.5 Hyperlipidemia, unspecified
CPT/HCPCS: 36415; 76775-TC; 80053; 81003; 82570; 82962; 83036; 84156; 85025; 87040; 87081; 93005; 93010; 93970-TC; 99285-25; G0378; J1644

== ENCOUNTER 2024-07-29 08:20 | Emergency (ER) | payer OTHER ==
[2024-07-29 08:39] VITALS: RESP 18; TEMP 98; BMI 47.5
[2024-07-29] MEDS: FAMOTIDINE 20 MG/50 ML IVPB 20 MG/50 ML MG IVPB ONE (10:25)
[2024-07-29 10:26] LABS: BASO % 0.1 % (0-2.0); EOS % 1.4 % (0-4.5); HEMATOCRIT 41.4 % (35.4-49); HEMOGLOBIN 13.3 GM/dL (11.7-16.9); LYMPH % 8.7 % (8-40); MCH 27.7 pg (25.7-33.7); MCHC 32.1 g/dl (32.0-35.9); MEAN CELL VOLUME 86.1 fl (80-96); MEAN PLT VOLUME 8.9 fl (7.5-11.1); MONO % 9.7 % (3.8-10.2); NEUT % 80.1 % (42.8-82.8); PLATELET COUNT 142 10^3/uL (134-434); RBC 4.81 M/mm3 (4.00-5.60); WHITE BLOOD COUNT 7.6 K/mm3 (4.0-10.0)
[2024-07-29 10:28] LABS: INR 1.05 (0.83-1.09); POTASSIUM 4.2 mmol/L (3.5-5.1); PROTHROMBIN TIME (PATIENT) 11.9 SEC (9.7-13.0)
[2024-07-29 10:31] LABS: ACTIVATED PTT 29.6 SECONDS (25.2-36.5); ALBUMIN 2.9 g/dl (3.4-5.0); BLOOD UREA NITROGEN 22.8 mg/dL (7-18); CALCIUM 9.1 mg/dL (8.5-10.1)
[2024-07-29 10:34] LABS: CREATININE 1.6 mg/dL (0.55-1.3)
[2024-07-29 10:36] LABS: BILIRUBIN,TOTAL 0.7 mg/dL (0.2-1)
[2024-07-29] MEDS ORDERED: FAMOTIDINE 20 MG/50 ML IVPB 20 MG/50 ML MG IVPB ONE (11:12)
[2024-07-29] MEDS ORDERED: ACETAMINOPHEN INJECTION 100 ML ONE ×2 (11:47→12:23)
[2024-07-29] MEDS: ACETAMINOPHEN 1000 MG/100 ML BAG IVPB ONE (12:10)
[2024-07-29 14:28] LABS: HIV INTERPRETATION NEGATIVE (NEGATIVE)
[2024-07-29 15:06] VITALS: BP 129/75; PULSE 77
== END 2024-07-29 15:32 | disposition home or self-care (01) ==
LOC: JER 08:20
DX: R10.12 Left upper quadrant pain (principal); M79.89 Other specified soft tissue disorders; R10.13 Epigastric pain
CPT/HCPCS: 36415; 71046-TC-FY; 80053; 83690; 84484; 85025; 85610; 85730; 86803; 86850; 86900; 86901; 87389; 93005; 93010; 93971-TC; 99285-25; J0131

== ENCOUNTER 2024-11-26 08:25 | Emergency (ER) | payer OTHER ==
[2024-11-26 08:55] VITALS: BP 141/81; PULSE 86; RESP 20; TEMP 98.6; BMI 45.5
[2024-11-26 10:50] LABS: ABSOLUTE IMMATURE GRANULOCYTES 0.09 x10^3/uL (0.0-0.031); BASOPHILS # 0.01 x10^3/uL (0.01-0.08); EOSINOPHIL % 2.6 % (0.8-7.0); EOSINOPHILS # 0.18 x10^3/uL (0.04-0.54); HEMATOCRIT 44.9 % (40.1-51.0); HEMOGLOBIN 13.9 g/dL (13.7-17.5); MEAN CELL VOLUME 85.5 fl (79.0-92.2); MEAN PLT VOLUME 11.3 fl (9.4-12.4); MONOCYTE # 0.77 x10^3/uL (0.30-0.82); MONOCYTE % 11.1 % (5.3-12.2); PLATELET COUNT # 181 x10^3/uL (163-337); RDW 13.6 % (12.2-16.4)
[2024-11-26 11:08] LABS: ALBUMIN 3.9 g/dl (3.4-5.0); BILIRUBIN,TOTAL 0.8 mg/dl (0.2-1); CALCIUM 9.5 mg/dl (8.5-10.1); CREATININE 1.4 mg/dl (0.6-1.3); POTASSIUM 4.5 mmol/L (3.5-5.1); TOT PROT 6.7 g/dl (6.4-8.2)
== END 2024-11-26 11:54 | disposition home or self-care (01) ==
LOC: FER 08:25
DX: I89.0 Lymphedema, not elsewhere classified (principal); L03.115 Cellulitis of right lower limb; R60.0 Localized edema
CPT/HCPCS: 36415; 73610-TC-RT-FY; 73630-TC-RT-FY; 80053; 85025; 86140; 93971-TC; 99285-25